=== PATIENT | male | born 1975 | race Caucasian/White ===

== ENCOUNTER 2024-10-17 09:44 | Inpatient (IN) ==
--- NOTE | 2024-10-17 10:04 | Emergency Department Note ---
Impression & Plan Infected hematoma Admission ED Provider Note HPI: History obtained from patient. The patient is a 49-year-old gentleman with history of smoking, presents the emergency department with a chief complaint of an infected hematoma to the right medial thigh. Patient states his original injury occurred when he fell off a tractor about 2-1/2 weeks ago. Patient was here in the hospital 2 days ago and scheduled for surgery for debridement of infected hematoma to the right medial thigh, he states he signed out AGAINST MEDICAL ADVICE prior to his surgery being performed because he was having issues with anxiety. On arrival here to the ED the patient complains of some pain in this area, he states "it just will not heal up". Patient states he did finish a course of oral antibiotics several days ago. On arrival here to the ED the patient is mildly hypertensive but otherwise hemodynamically stable, he is afebrile, he appears to be in no acute distress on my initial evaluation. ROS: - Per HPI Differential Diagnosis: Cellulitis, infected hematoma, necrotizing soft tissue infection, amongst other potential pathologies. *Outpatient medications and allergy history reviewed. PE: General: Alert HEENT: Normocephalic, trachea midline Eyes: Extraocular eye movement is intact, no scleral erythema Pulmonary: Clear to auscultation bilaterally, no wheezing Cardio: Regular rate and rhythm GI: Abdomen is soft to palpation : No suprapubic tenderness MSK: There is a large apparent hematoma with central purulent ulcer to the medial aspect of the right lower extremity without any surrounding crepitus to palpation Skin: No evidence of rash Neuro: Alert, no focal deficits Psychiatric: Cooperative INDEPENDENT INTERPRETATIONS: night monitor: (As interpreted by myself): - An order was placed for continuous cardiac monitoring - Patient was noted to be in sinus rhythm with a rate of 85 EKG: (As interpreted by myself): Rate: 87 Rhythm: Normal sinus rhythm Intervals: Within normal limits ST changes: No ST elevation Time: 1015 Interventions provided in ED: - IV morphine, IV Zofran, IV cefepime Medical Decision Making: IV was established and lab work obtained, patient was placed on cardiac tech. Lab work shows no leukocytosis, hemoglobin is normal, platelet count is normal, CMP does not show any evidence of any critical findings. Lactic acid is mildly elevated at 2.1. Procalcitonin is low at 0.03. Patient did have CT imaging done just 2 days ago, therefore I did reach out to general surgery and discussed his presentation with the on-call midlevel provider for Dr. Laguna. They are in agreement for consultation and likely operative intervention later today, patient was advised for admission to the hospitalist service. I then did touch base with the hospitalist service who accepted admission. Patient was placed for admission to the service of Dr. Mckinley. Blood cultures were drawn in the ED, patient was given a dose of IV cefepime. Patient was placed for admission in stable condition. Patient and his family members at the bedside were in agreement to this plan. Consultants/Discussions held with other healthcare providers: - Hospitalist, Dr. Mckinley - General Surgery, Dr. Laguna Disposition discussion held by myself with: - Patient and family at bedside Diagnosis: 1. Infected hematoma of the right lower extremity, acute Disposition: Admission Teo Perla DO Emergency Medicine Past Med/Surg History Problem List (Updated 10/17/24 @ 15:28 by Teo Perla DO) Infected hematoma (Acute) Cellulitis of right thigh Nicotine dependence with current use Alcohol abuse COPD (chronic obstructive pulmonary disease) Avulsion of skin (Acute) Hematoma of right thigh (Acute) Infected hematoma (Acute) Cervical stenosis of spinal canal (Acute 07/01/13) Medical History High blood pressure Surgical History H/O Spinal surgery Social History Smoking Status: Current every day smoker Tobacco Type: Cigarettes Preferred Language: Mohawk Feels Safe at Home: Yes Allergies Allergies Allergy/AdvReac Type Severity Reaction Status Date / Time Penicillins Allergy Intermediate RASH Verified 10/17/24 10:55 Home Meds Home Medications Medication Instructions Recorded Confirmed acetaminophen 500 mg tablet 500 mg PO Q6H PRN Pain 10/15/24 10/17/24 ibuprofen 200 mg tablet 200 mg PO Q6H PRN Pain 10/15/24 10/17/24 albuterol 90 mcg/actuation aerosol 108 mcg inhalation PRN wheeze 10/17/24 inhaler hydrochlorothiazide 25 mg tablet 25 mg PO DAILY 10/17/24 10/17/24 lisinopril 20 mg tablet 20 mg PO DAILY 10/17/24 10/17/24 Results & Data (ED) Vital Signs Vital Signs - 24 hr 10/17/24 09:46 10/17/24 10:23 10/17/24 10:27 Temperature 36.9 C Temperature Source Oral Pulse Rate 97 H 90 85 Pulse Rate from SpO2 Sensor Respiratory Rate 20 17 Respiratory Effort / Characteristics Non-Labored Spontaneous Respiratory Depth Normal Respiratory Pattern Regular Blood Pressure 149/107 H 170/94 H Blood Pressure Mean 121 119 Pulse Oximetry 99 97 Oxygen Delivery Method Room Air Room Air Sepsis Recent Fever Within 48 Hours No Sepsis New/Unexplained Change in Mental Status N/A Sepsis Action Taken by Nursing No Action Required 10/17/24 11:12 10/17/24 11:33 10/17/24 12:33 Temperature Temperature Source Pulse Rate 83 83 88 Pulse Rate from SpO2 Sensor 83 84 81 Respiratory Rate 16 19 23 Respiratory Effort / Characteristics Respiratory Depth Respiratory Pattern Blood Pressure 160/98 H 173/104 H Blood Pressure Mean 118 127 Pulse Oximetry 99 98 98 Oxygen Delivery Method Room Air Sepsis Recent Fever Within 48 Hours Sepsis New/Unexplained Change in Mental Status Sepsis Action Taken by Nursing 10/17/24 13:39 10/17/24 14:03 10/17/24 14:10 Temperature Temperature Source Pulse Rate 86 81 79 Pulse Rate from SpO2 Sensor 83 84 Respiratory Rate 16 16 Respiratory Effort / Characteristics Respiratory Depth Respiratory Pattern Blood Pressure 175/104 H 177/101 H Blood Pressure Mean 127 126 Pulse Oximetry 96 96 Oxygen Delivery Method Sepsis Recent Fever Within 48 Hours Sepsis New/Unexplained Change in Mental Status Sepsis Action Taken by Nursing 10/17/24 14:36 10/17/24 15:03 Temperature Temperature Source Pulse Rate 76 84 Pulse Rate from SpO2 Sensor 77 79 Respiratory Rate 17 25 H Respiratory Effort / Characteristics Respiratory Depth Respiratory Pattern Blood Pressure Blood Pressure Mean Pulse Oximetry 98 98 Oxygen Delivery Method Sepsis Recent Fever Within 48 Hours Sepsis New/Unexplained Change in Mental Status Sepsis Action Taken by Nursing Laboratory Data 10/17/24 10:06 10/17/24 10:06 Lab Results 10/17/24 10/17/24 Range/Units 10:06 12:23 WBC 10.13 (4.8-10.8) K/ul RBC 4.43 L (4.70-6.10) M/uL Hgb 15.0 (14.0-18.0) g/dl Hct 42.3 (42.0-52.0) % MCV 95.5 (80.0-100.0) fL MCH 33.9 (25.0-34.0) pg MCHC 35.5 (32.0-36.0) g/dL RDW Std Deviation 49.2 H (36.4-46.3) fL RDW Coeff of Pako 13.9 (11.5-14.5) % Plt Count 393 (130-400) K/uL MPV 8.7 L (9.4-12.4) fL Immature Gran % (Auto) 0.6 % Neut % (Auto) 61.8 % Lymph % (Auto) 26.1 % Dewitt % (Auto) 9.7 % Eos % (Auto) 0.7 % Baso % (Auto) 1.1 % Neut # (Auto) 6.27 (1.40-6.50) K/uL Lymph # (Auto) 2.64 (1.20-3.40) K/uL Dewitt # (Auto) 0.98 H (0.11-0.59) K/uL Eos # (Auto) 0.07 (0.00-0.50) K/uL Baso # (Auto) 0.11 (0.00-0.20) K/uL Immature Gran # (Auto) 0.06 (0.01-0.20) K/uL Sodium 138 (136-145) mmol/L Potassium 3.3 L (3.5-5.1) mmol/L Chloride 103 (98-107) mmol/L Carbon Dioxide 25 (21-32) mmol/L Anion Gap 10 (3-11) BUN 5 L (6-23) mg/dl Creatinine 0.87 (0.6-1.4) mg/dl Est Cr Clr Drug Dosing Not Reportable eGFR 104.47 BUN/Creatinine Ratio 5.7 L (10-20) Glucose 145 H (70-99(Fasting)) mg/dl Lactate 2.1 H* 1.8 (0.4-2.0) mmol/L Calcium 8.7 (8.6-10.3) mg/dl Magnesium 1.9 (1.7-2.4) mg/dl Total Bilirubin 0.4 (0.2-1.0) mg/dl Direct Bilirubin 0.0 (0-0.2) mg/dl AST 24 (13-39) U/L ALT 19 (7-52) U/L Alkaline Phosphatase 115 H (34-104) U/L Total Protein 7.4 (6.0-8.3) gm/dl Albumin 3.7 (3.4-5.0) gm/dl Procalcitonin 0.03 (0-0.5) ng/ml Administered Medications Daptomycin 700 mg/ Syringe 14 mls @ 7 mls/min IV Q24H EMIL; Protocol Stop: 10/24/24 12:44 Last Admin: 10/17/24 13:11 Dose: 7 mls/min Documented By: ABEL Nicotine (Nicotine 21 Mg/24 Hr Tdsy) 1 patch TD QAM EMIL Stop: 11/16/24 11:44 Last Admin: 10/17/24 11:53 Dose: 1 patch Documented By: ABEL Discontinued Medications Gabapentin (Gabapentin 600 Mg Tab) 1,200 mg PO NOW ONE Stop: 10/17/24 11:37 Last Admin: 10/17/24 11:53 Dose: 1,200 mg Documented By: ABEL Hydralazine HCl (Hydralazine Hcl 20 Mg/Ml Vial) 5 mg IV NOW ONE Stop: 10/17/24 13:46 Last Admin: 10/17/24 14:07 Dose: 5 mg Documented By: ABEL Sodium Chloride (Nss) 500 mls @ 999 mls/hr IV .Q31M ONE Stop: 10/17/24 10:32 Last Infusion: 10/17/24 11:31 Dose: Infused Documented By: Admin: 10/17/24 10:17 Dose: 999 mls/hr Documented By: ABEL Piperacillin Sod/Tazobactam Sod (Zosyn) 4.5 gm in 100 mls @ 200 mls/hr IV NOW ONE; Protocol Stop: 10/17/24 11:12 Last Admin: 10/17/24 11:30 Dose: Not Given Documented By: ABEL Cefepime HCl (Maxipime 2000mg) 2,000 mg in 20 mls @ 5 mls/min IV NOW STA; Protocol Stop: 10/17/24 10:47 Last Admin: 10/17/24 11:27 Dose: 5 mls/min Documented By: ABEL Lisinopril (Lisinopril 20 Mg Tab) 20 mg PO NOW STA Stop: 10/17/24 13:53 Last Admin: 10/17/24 14:07 Dose: 20 mg Documented By: ABEL Morphine Sulfate (Morphine Sulfate 4 Mg/Ml 1 Ml Carp\\Vial) 4 mg IV NOW STA Stop: 10/17/24 10:22 Last Admin: 10/17/24 10:25 Dose: 4 mg Documented By: ABEL Ondansetron HCl (Ondansetron Inj 2 Mg/Ml 2 Ml Vial) 4 mg IV NOW STA Stop: 10/17/24 10:22 Last Admin: 10/17/24 10:24 Dose: 4 mg Documented By: ABEL Potassium Chloride (Potassium Chloride Crtab 20 Meq Tabcr) 40 meq PO NOW STA Stop: 10/17/24 12:13 Last Admin: 10/17/24 12:25 Dose: 40 meq Documented By: ABEL Thiamine HCl (Thiamine Hcl 100 Mg Tab) 100 mg PO ONE ONE Stop: 10/17/24 11:46 Last Admin: 10/17/24 12:25 Dose: 100 mg Documented By: ABEL Imaging Data Radiologist's Impression: Femur CT 10/17/24 11:52 CT femur RT wo con CLINICAL HISTORY: Right lower extremity hematoma. COMPARISON STUDY: Right femur CT right lower extremity ultrasound October 15, 2024. TECHNIQUE: Axial images of the right femur and thigh were obtained without intravenous contrast. Sagittal and coronal reformats were viewed. A dose lowering technique was utilized adhering to the principles of ALARA. FINDINGS: No fractures within the right femur or visualized portions of the pelvis are identified. Mildly enlarged right external iliac and inguinal lymph nodes are unchanged and CT of October 15, 2024. A right external iliac lymph node on image 35 of 467 measures 2.9 x 1.2 cm. These nodes are likely reactive. A large subcutaneous medial right thigh fluid collection is unchanged since CT of October 15, 2024, measuring 22 x 14 x 8.3 cm. As before, this contains several hyperdense foci suggestive of small clots. No new fluid collections are present. There is adjacent stranding and skin thickening, as before. IMPRESSION: 1. No change in a large subcutaneous fluid collection of the medial right thigh since CT of October 15, 2024. As before, the skin and small hyperdense foci suggestive of retracting clot. This favors a subacute hematoma. Mild adjacent stranding is also unchanged. 2. No right femoral fractures. 3. No change in mildly enlarged right right external iliac and inguinal lymph nodes which are likely reactive. ACT 112: Negative or not required by law. Electronically signed by: Derek Cameron M.D. 10/17/2024 12:43 PM Discharge Plan Visit Data Chief Complaint: Infection Stated Complaint: L LEG INF ED Provider: Teo Perla Discharge Problem: Infected hematoma Patient Disposition: Admitted As Inpatient Condition: Fair Forms Stand Alone Forms: [facility] Prescriptions Prescriptions: No Action acetaminophen [Tylenol Ex Str Rapid Release] 500 mg Tablet 500 mg PO Q6H PRN (Reason: Pain) ibuprofen 200 mg Tablet 200 mg PO Q6H PRN (Reason: Pain) lisinopril 20 mg Tablet 20 mg PO DAILY hydrochlorothiazide 25 mg Tablet 25 mg PO DAILY Proventil 90 mcg/actuation Aerosol 108 mcg INHALATION PRN (Reason: wheeze) Referrals Referrals: Barbara Lei MD [Primary Care Provider] -
[2024-10-17] MEDS: SODIUM CHLORIDE 0.9% 500 ML IV ONE (10:17)
[2024-10-17] MEDS: ONDANSETRON INJ 2 MG/ML 2 ML VIAL IV STA (10:24)
[2024-10-17] MEDS: MoRPHine SULFATE 4 MG/ML 1 ML CARP\\VIAL IV STA (10:25)
[2024-10-17 10:28] LABS: Hematocrit (blood only) 42.3 % (42.0-52.0); Hemoglobin 15.0 g/dl (14.0-18.0); Immature Granulocytes # (auto) 0.06 K/uL (0.01-0.20); Immature Granulocytes % (auto) 0.6 %; Mean Corpuscular Hemoglobin 33.9 pg (25.0-34.0); Mean Corpuscular Volume 95.5 fL (80.0-100.0); Platelet Count 393 K/uL (130-400); RDW Standard Deviation 49.2 fL (36.4-46.3); Red Blood Count 4.43 M/uL (4.70-6.10); White Blood Count 10.13 K/ul (4.8-10.8)
[2024-10-17 10:46] LABS: Alanine Aminotransferase 19 U/L (7-52); Albumin Level 3.7 gm/dl (3.4-5.0); Alkaline Phosphatase 115 U/L (34-104); Anion Gap 10 (3-11); Bilirubin,Total 0.4 mg/dl (0.2-1.0); Blood Urea Nitrogen 5 mg/dl (6-23); Calcium 8.7 mg/dl (8.6-10.3); Carbon Dioxide 25 mmol/L (21-32); Chloride 103 mmol/L (98-107); Glucose 145 mg/dl (70-99(Fasting)); Magnesium 1.9 mg/dl (1.7-2.4); Potassium 3.3 mmol/L (3.5-5.1); Sodium 138 mmol/L (136-145); Total Protein 7.4 gm/dl (6.0-8.3)
--- NOTE | 2024-10-17 10:57 | History & Physical Report ---
Date of Service October 17, 2024 Assessment & Plan (1) Infected hematoma: Plan: Patient is a 49 year old M with a past medical history of COPD, current tobacco user, HTN (uncontrolled) ,morbid obesity, hypertriglyceridemia, chronic DDD, panic disorder, anxiety presenting with right leg hematoma and infection. Two weeks ago, on 09/24, he fell off a tractor and run over with the brush hook injuring his right thigh, right scrotum, and upper back. He was seen in the ED on 09/26, sent home with Bactrim and reportedly competed the entire course of antibiotic. He returned here 2 days ago for unresolved symptoms and persistent infection, was agreeable to surgery that same day and then left AMA d/t overwhelming anxiety and possible nicotine withdrawal. He feels infection has not completely cleared, has not worsened. Left scrotal injury improving per patient report and not bothersome at this time. Infected hematoma #Hematoma right thigh #Cellulitis Right thigh * Admit to Med Surg for further management RLE infection of thigh hematoma * CT femur 10/15 showing large well defined homogeneously hypoattenuating lesion/collection of medial aspect of mid and distal right thigh; Few hypodense area possibility of hemorrhagic component likely. * Follow up CT femur today showing no change in subQ fluid collection medial right thigh and subacute hematoma. * General surgery consulted in the ED with the plan for debridement today. Patient is agreeable to surgery. NPO for anticipated surgery; NSS 80 ml/hr * Cefepime given in the ED; NSS 500 ml bolus, Morphine for pain x 1 with relief. * Start Zosyn for broader spectrum coverage * Daptomycin for MRSA coverage * ID consult placed--> patient failed OP treatment with Bactrim * Discussed wound culture with General surgery * Labs: Stable WBC, Lactate 2.1. Procal norm. Blood cultures pending--> Trend CBC/BMP with AM labs * Pain management- Acetaminophen 1gm sche Q12H; Oxy 5mg for mod pain; Morphine 4mg for severe pain * Bowel regimen with Miralax daily * Case Management to assist with d/c planning with BP meds and possible wound care HH #Hypertension * BP elevated in ED 160's/90's; nonadherent with BP meds at home d/t no insurance * Resume home Lisinopril 20 mg Daily * Hydralazine 5mg as needed for SBP >160 #COPD #Nicotine dependence * Stable breathing in ED, pulse ox 98% RA * Current tobacco use 2 PPD- Nicotine patch ordered * Ativan 0.5 mg PO as needed for anxiety--> h/o AMA * Nonadherent to COPD mgmt at home with Proventil * Duonebs as needed Q6H here for wheezing/shortness of breath * IS Q4H while awake #Alcohol Abuse * Heavy alcohol use 1 case beer/day * AAWS initiated- Gabapentin protocol * Thiamine x 1 given in ED DVT Ppx: Lovenox/SCD to LLE Code status: Full PCP: Dr. Barbara Lei Dispo: Admit to Med Surg Patient seen in collaboration with Dr. Downing. Please see addendum.I spent a total of 70 minutes coordinating, documenting and providing care for this patient excluding time spent in the performance of separately billed services or time spent by another provider/QHP. (2) Cellulitis of right thigh: (3) Hematoma of right thigh: (4) High blood pressure: (5) COPD (chronic obstructive pulmonary disease): (6) Nicotine dependence with current use: (7) Alcohol abuse: History of Present Illness Primary Care Provider: Barbara Lei MD Patient is a 49 year old M with a past medical history of COPD, current tobacco user, HTN (uncontrolled) ,morbid obesity, hypertriglyceridemia, chronic DDD, panic disorder, anxiety presenting with right leg hematoma and infection. Two weeks ago, on 09/24, he fell off a tractor and run over with the brush hook injuring his right thigh, right scrotum, and upper back. He was seen in the ED on 09/26, sent home with Bactrim and reportedly competed the entire course of antibiotic. He returned here 2 days ago for unresolved symptoms and persistent infection, was agreeable to surgery that same day and then left AMA d/t overwhelming anxiety and possible nicotine withdrawal. He feels infection has not completely cleared, has not worsened. Left scrotal injury improving per patient report and not bothersome at this time. Denies fever, chills, weight loss, weakness, headache, cognitive changes, vision/hearing changes, chest pain, SOB, difficulty breathing, urinary concerns, N/V/D, joint swelling/pain, ambulation difficulty, skin rashes, bleeding, bruising. In the emergency department, patient was afebrile with stable white count, but had an elevated Lactate 2.1. Procal norm. Hypokalemia with K+ 3.3 and supplemented with 40 meq KCL x 1. Alk phos elevated 115. CT femur imaging from 10/15 showing large well defined homogeneously hypoattenuating lesion/collection (HU around 6-7) involving medial aspect of mid and distal right thigh region in the subcutaneous plane. Few hypodense area possibility of hemorrhagic component likely. Follow up CT femur done today showing large subcutaneous fluid collection of the medial right thigh since CT of October 15, 2024. As before, the skin and small hyperdense foci suggestive of retracting clot. This favors a subacute hematoma. Mild adjacent stranding is also unchanged. General surgery consulted in the ED with the plan for debridement today. Patient is agreeable to surgery. Cefepime and Zosyn given in the ED. NSS 500 ml in ED. Morphine for pain x 1 with relief. Patient is nonadherent to home medications for hypertension, COPD, and hypertriglyceridemia d/t lack of insurance. He has been off all controller medications for at least 2 months. Hypertensive in ED 160's /90's. No acute resp distress and stable on room air. Current tobacco user 2 PPD. History obtained primarily from the patient and via hospitalization record. The patient's family was at the bedside and assisted with history of current illness. External chart review obtained from [facility] for home meds. Allergies Allergy/AdvReac Type Severity Reaction Status Date / Time Penicillins Allergy Intermediate RASH Verified 10/17/24 10:55 Home Medications Medication Instructions Recorded Confirmed Type acetaminophen 500 mg tablet 500 mg PO Q6H PRN Pain 10/15/24 10/17/24 History ibuprofen 200 mg tablet 200 mg PO Q6H PRN Pain 10/15/24 10/17/24 History albuterol 90 mcg/actuation aerosol 108 mcg inhalation PRN wheeze 10/17/24 History inhaler hydrochlorothiazide 25 mg tablet 25 mg PO DAILY 10/17/24 10/17/24 History lisinopril 20 mg tablet 20 mg PO DAILY 10/17/24 10/17/24 History Past Med/Surg History Problem List Cellulitis of right thigh Nicotine dependence with current use Alcohol abuse COPD (chronic obstructive pulmonary disease) Avulsion of skin (Acute) Hematoma of right thigh (Acute) Infected hematoma (Acute) Cervical stenosis of spinal canal (Acute 07/01/13) Medical History High blood pressure Surgical History H/O Spinal surgery Social History Smoking Status: Current every day smoker Tobacco Type: Cigarettes Preferred Language: [place] Feels Safe at Home: Yes Review of Systems Review of Systems: All systems reviewed & are unremarkable except as noted in HPI & below Physical Exam Physical Exam: VITALS: Reviewed. WEIGHT/BMI reviewed. GEN: Obese, well-developed, NAD. PSYCH: Good Judgment. AOx3. Normal memory, mood, and affect. HEENT -Head: NC/AT; -Eyes: PERRL, EOMI. No discharge or redn ess; -Ears: External ears are normal. -Nose: Normal nares. -Mouth and throat: MMM. Normal gums, muc renetta, palate, few missing teeth NECK: Supple, with no masses. CV: S1, S2 without murmur or exra beats. No LLE swelling. Pulses strong throughout. LUNGS: Mild diminished airflow bilaterally to BL bases, NAD. Clear on auscultation ABD: Soft, obese, NT/ND, NBS, no masses or organomegaly. : N/A SKIN: Right inner thigh severe swelling, warm, erythema, +eschar covering large wound ~10 inch diam, central ulceration without active drainage. MSK: No deformities, Normal gait. NEURO: Ambulating with no limitations. Normal muscle strength and tone. No focal deficits. Results & Data Results & Data Vital Signs (Past 12 Hours) Vital Signs Temp Pulse Resp BP Pulse Ox O2 Del Method 10/17/24 10:23 90 10/17/24 09:46 36.9 C 97 H 20 149/107 H 99 Room Air Laboratory Results Short CBC 10/17/24 Range/Units 10:06 WBC 10.13 (4.8-10.8) K/ul Hgb 15.0 (14.0-18.0) g/dl Hct 42.3 (42.0-52.0) % Plt Count 393 (130-400) K/uL BMP 10/17/24 10:06 Sodium 138 Potassium 3.3 L Chloride 103 Carbon Dioxide 25 BUN 5 L Creatinine 0.87 Glucose 145 H Calcium 8.7 Liver Function 10/17/24 Range/Units 10:06 Total Bilirubin 0.4 (0.2-1.0) mg/dl Direct Bilirubin 0.0 (0-0.2) mg/dl AST 24 (13-39) U/L ALT 19 (7-52) U/L Alkaline Phosphatase 115 H (34-104) U/L Albumin 3.7 (3.4-5.0) gm/dl Diagnostic Findings CT femur RT w con CLINICAL HISTORY: infection TECHNIQUE: Contiguous axial CT images of right femur were obtained with intravenous contrast. Coronal and sagittal reconstructions were likewise performed and indicated to increase the sensitivity for detecting clinically relevant pathology. CT scan was performed according to ALARA (as low as reasonable achievable). COMPARISON: None. FINDINGS: Approximately 12.3 x 12.5 x 23 cm ( AP x TR x CC) sized well defined homogeneously hypoattenuating lesion/collection (HU around 6-7) is noted involving medial aspect of mid and distal right thigh region in the subcutaneous plane. It shows intrinsic few hypodense area possibility of hemorrhagic component likely . No significant peripheral enhancement is seen. Diffuse subcutaneous edema seen in right thigh. No acute fracture or dislocation. No destructive osseous lesion. The visualized muscles and tendons appear grossly unremarkable. No cortical destruction to suggest osteomyelitis. No abscess formation. No significant joint effusion. IMPRESSION: 1. A large well defined homogeneously hypoattenuating lesion/collection (HU around 6-7) is noted involving medial aspect of mid and distal right thigh region in the subcutaneous plane. It shows intrinsic few hypodense area possibility of hemorrhagic component likely. No significant peripheral enhancement is seen.- could be chronic hematoma /chronic collection likely 2. No obvious osseous abnormalities seen. Electronically signed by Eitan Jorgensen 10-15-2024 07:22 AM Dictated: 10/15/24 0638 Transcribed:
--- NOTE | 2024-10-17 11:24 | Surgery Consultation ---
Date of Consultation October 17, 2024 Assessment & Plan (1) Infected hematoma: Patient seen and evaluated this morning in the emergency department. Patient with infected right thigh hematoma with overlying skin necrosis Patient being admitted to medical service. Keep patient n.p.o., IV hydration, and initiate IV antibiotic coverage Will tentatively plan to take patient to the operating theater today for incision and drainage and debridement of the hematoma as above. discussed options/risks. pt agreeable. will proceed today with incision and drainage of RLE abcess and debridement of necrotic tissue History of Present Illness Reason for Consultation: infected right thigh hematoma History of Present Illness Patient is a 49-year-old male presented to the emergency department for complaints of worsening right thigh wound/hematoma. Roughly 3 weeks ago, the patient states that he was in a tractor accident which caused the injury. He states the area has not been able to heal and has progressively gotten worse over the course of a few weeks. To note, the patient was seen 2 days ago in the emergency department and was scheduled to undergo operative intervention with surgical team for incision drainage and debridement however he did leave AMA. Since then, the patient denies any new onset of fevers, chills, nausea or vomiting. The patient did come back to the emergency department this morning again and was evaluated by the surgical team at bedside. Allergies Allergy/AdvReac Type Severity Reaction Status Date / Time Penicillins Allergy Intermediate RASH Verified 10/17/24 10:55 Home Medications Medication Instructions Recorded Confirmed Type acetaminophen 500 mg tablet 500 mg PO Q6H PRN Pain 10/15/24 10/17/24 History ibuprofen 200 mg tablet 200 mg PO Q6H PRN Pain 10/15/24 10/17/24 History albuterol 90 mcg/actuation aerosol 108 mcg inhalation PRN wheeze 10/17/24 History inhaler hydrochlorothiazide 25 mg tablet 25 mg PO DAILY 10/17/24 10/17/24 History lisinopril 20 mg tablet 20 mg PO DAILY 10/17/24 10/17/24 History Patient History Medical History High blood pressure Surgical History H/O Spinal surgery Social History Smoking Status: Current every day smoker Tobacco Type: Cigarettes Preferred Language: Spanish Feels Safe at Home: Yes Review of Systems Constitutional: no fever, no chills and no body aches Respiratory: no cough, no dyspnea and no wheezing Cardiovascular: no chest pain, no palpitations and no syncope Gastrointestinal: no abdominal pain, no nausea and no vomiting Musculoskeletal: as per Subjective / HPI Physical Exam 2 Constitutional: WD/WN, vitals as above Respiratory: normal respiratory effort, lungs clear to auscultation Cardiovascular: Rate/Rhythm: regular rate Gastrointestinal (Abdomen): normal bowel sounds, soft, nontender, no hepatosplenomegaly Skin: Large area of skin necrosis at the right medial thigh with surrounding erythema and fluctuance Psychiatric: A+Ox3, euthymic affect Results & Data Vital Signs (Past 12 Hours) Vital Signs Temp Pulse Resp BP Pulse Ox O2 Del Method 10/17/24 10:23 90 10/17/24 09:46 36.9 C 97 H 20 149/107 H 99 Room Air PG Care Time/CCT Total # of Minutes Spent Total Time Spent with Patient: Total time spent is greater than 50% in coordination of care (as documented) at patient's floor/unit and/or counseling patient: [place] [address] Office/OBS Consult Lvl 1 Patient Type New Medical Decision Making Straight Forward Diagnoses Infected hematoma T14.8XXA; L08.9
[2024-10-17] MEDS: CEFEPIME 2000MG 2,000 MG/20 ML SYR IV STA (11:27)
[2024-10-17] MEDS: PIPERACILLIN/TAZOBACTAM 4.5 GM/100 ML BAG IV ONE (11:30)
[2024-10-17] MEDS ORDERED: GABAPENTIN 1200MG ALCOHOL WITHDRAWAL LOAD PO STA (11:36)
[2024-10-17] MEDS ORDERED: LORazepam 1 MG TAB PO PRN ×2 (11:36)
[2024-10-17] MEDS: NICOTINE 21 MG/24 HR TDSY TD SCH (11:53)
[2024-10-17] MEDS: GABAPENTIN 600 MG TAB PO ONE (11:53)
[2024-10-17] MEDS ORDERED: NICOTINE 21 MG/24 HR TDSY TD ONE ×2 (12:00→12:30)
--- NOTE | 2024-10-17 12:17 | Communication Note ---
Date of Service: October 17, 2024 Attending Addendum: Case reviewed with the advanced practitioner. I have personally performed a history and physical examination on the patient. I have reviewed the advanced practitioner's documentation on the date of service referenced in note, and I agree with, and take responsibility for the plan of care. please refer to her notes for full details patient seen and examined, records reviewed by myself as well on exam, patient seen resting in bed, sitting up friends at bedside, confirmed with patient, he is agreeable that they are at the bedside during interview and physical exam states morphine relieved pain on the right thigh denies fever/chills, nausea, weakness no chest pain, dyspnea, palpitations, dizziness states he feels anxious in the hospital, requesting medications for anxiety as needed states he drinks 10-12 beers, about 3x per week no other symptoms VS noted and reviewed oriented x 3 , not in distress, speaks in sentences with no effort nor accessory muscle use normal rate, regular rhythm, no murmurs clear breath sounds bilaterally non distended, soft, nontender R thigh: on the medial aspect, large wound with skin necrosis, dry, no active bleeding or discharge (+) significant edema, erythema moderate warmth, tenderness R lower ext: essentially normal R scrotum: small,open, superficial wound, no signs of infection, no edema/warmth/tenderness no neuro deficits all labs, imaging noted and reviewed ASSESSMENT AND PLAN> INFECTED RIGHT THIGH WOUND, WITH CELLULITIS S/P TRAUMA occurred ~3 weeks ago, fell from tractor and leg injured by a brush hook; failed Bactrim therapy, seen at the ER 2 days ago, plan for I&D by General Surgery, unfortunately patient signed out AMA due to anxiety blood culture 10/15: negative so far repeat blood culture 10/17: pending requesting Gen Surg to obtain culture from wound drainage intraop IV Dapto + Zosyn Tylenol, Oxycodone, Morphine PRN received Tetanus shot as per patient during initial visit to an urgent care on the day of injury September 26 ALCOHOL USE 10-12 beers, 3x a week Gabapentin protocol, PRN Ativan patient states he drinks to cope with anxiety since being off his Psych meds after loosing health insurance coverage strongly encouraged to follow up closely again with PCP, referred to TO [facility] Nicotine Patch HTN has been off Lisinopril/HCTZ since loosing insurance coverage continue Lisinopril for now COPD on PRN Proventil other diagnoses and plan of care as per advanced practitioner's notes I spent a total of 50 minutes coordinating, documenting, and providing care for this patient, excluding time spent in the performance of separately billed services or time spent by another provider/QHP. Akhil Mckinley MD
[2024-10-17] MEDS: POTASSIUM CHLORIDE CRTAB 20 MEQ TABCR PO STA (12:25)
[2024-10-17] MEDS: THIAMINE HCL 100 MG TAB PO ONE (12:25)
--- NOTE | 2024-10-17 12:44 | CT Scan Report ---
CT femur RT wo con CLINICAL HISTORY: Right lower extremity hematoma. COMPARISON STUDY: Right femur CT right lower extremity ultrasound October 15, 2024. TECHNIQUE: Axial images of the right femur and thigh were obtained without intravenous contrast. Sagi ttal and coronal reformats were viewed. A dose lowering technique was utilized adhering to the princi ples of ALARA. FINDINGS: No fractures within the right femur or visualized portions of the pelvis are identified. Mi ldly enlarged right external iliac and inguinal lymph nodes are unchanged and CT of October 15, 2024. A right external iliac lymph node on image 35 of 467 measures 2.9 x 1.2 cm. These nodes are likely reac tive. A large subcutaneous medial right thigh fluid collection is unchanged since CT of October 15, 2024 , measuring 22 x 14 x 8.3 cm. As before, this contains several hyperdense foci suggestive of small cl ots. No new fluid collections are present. There is adjacent stranding and skin thickening, as before . IMPRESSION: 1. No change in a large subcutaneous fluid collection of the medial right thigh since CT of October 15, 2024. As before, the skin and small hyperdense foci suggestive of retracting clot. This favors a suba cute hematoma. Mild adjacent stranding is also unchanged. 2. No right femoral fractures. 3. No change in mildly enlarged right right external iliac and inguinal lymph nodes which are likely reactive. ACT 112: Negative or not required by law. Electronically signed by: Derek Cameron M.D. 10/17/2024 12:43 PM
[2024-10-17] MEDS: DAPTOmycin 700 MG in SYRINGE 0 ML IV SCH (13:11)
[2024-10-17] MEDS ORDERED: MIDAZOLAM HCL 1 MG/ML 2ML VIAL ONE (15:43)
[2024-10-17] MEDS ORDERED: LIDOCAINE 2% 2 ML VIAL/AMP(20MG/ML) INFIL ONE (15:43)
[2024-10-17] MEDS ORDERED: ONDANSETRON INJ 2 MG/ML 2 ML VIAL ONE (15:43)
[2024-10-17] MEDS ORDERED: PROPOFOL IV EMULSION 10 MG/ML 20 ML VIAL IV ONE ×3 (15:43→16:51)
[2024-10-17] MEDS: LACTATED RINGER'S 1,000 ML IV SCH (16:19)
--- NOTE | 2024-10-17 16:26 | Anesthesiology Consultation ---
Date of Service October 17, 2024 Assessment & Plan Chart Review Chart Review: Acceptable Risk for Surgery Consults Requested none History Surgery Operation Date: 10/17/24 11:35 Proposed Procedures p Incision and Drainage Right Thigh Hematoma - Brandon Laguna DO Height/Weight Height: 6 ft 3 in Weight: 145.3 kg Allergies Allergy/AdvReac Type Severity Reaction Status Date / Time Penicillins Allergy Intermediate RASH Verified 10/17/24 10:55 Medications Home Medications Medication Instructions Recorded Confirmed Last Taken acetaminophen 500 mg tablet 500 mg PO Q6H PRN Pain 10/15/24 10/17/24 Unknown ibuprofen 200 mg tablet 200 mg PO Q6H PRN Pain 10/15/24 10/17/24 Unknown albuterol 90 mcg/actuation aerosol 108 mcg inhalation PRN wheeze 10/17/24 Unknown inhaler hydrochlorothiazide 25 mg tablet 25 mg PO DAILY 10/17/24 10/17/24 Unknown lisinopril 20 mg tablet 20 mg PO DAILY 10/17/24 10/17/24 Unknown Active Medications Generic Name Dose Route Start Last Admin Trade Name Freq PRN Reason Stop Dose Admin Daptomycin 700 mg/ Syringe 14 mls @ 7 mls/min 10/17/24 12:45 10/17/24 13:11 IV 10/24/24 12:44 7 mls/min Q24H EMIL Administration Protocol Lactated Ringer's 1,000 mls @ 15 mls/hr 10/17/24 16:15 10/17/24 16:19 Lr IV 10/20/24 16:14 15 mls/hr .Q24H EMIL Administration NPO Date Last Intake of Fluids: 10/17/24 Time Last Intake of Fluids: 15:00 Last Intake of Fluids Comment: SIP WITH MEDS Date Last Intake of Solids: 10/16/24 Time Last Intake of Solids: 13:00 Past Medical History Medical History High blood pressure Past Surgical History Surgical History H/O Spinal surgery Social History Smoking Status: Current every day smoker Physical Exam Vital Signs Last Vital Signs Temp 36.8 C 10/17/24 16:06 Pulse 94 H 10/17/24 16:06 Resp 20 10/17/24 16:06 BP 141/89 H 10/17/24 16:06 Pulse Ox 98 10/17/24 16:06 O2 Del Method Room Air 10/17/24 16:06 Testing Laboratory Results 10/17/24 10:06 10/17/24 10:06
[2024-10-17] MEDS ORDERED: ONDANSETRON INJ 2 MG/ML 2 ML VIAL IV PRN (16:27)
[2024-10-17] MEDS ORDERED: PROMETHAZINE HCL 6.25 MG in SODIUM CHLORIDE 0.9% 50 ML IV PRN (16:27)
[2024-10-17] MEDS ORDERED: HYDROmorphone INJ 2 MG/ML SYR/VIAL IV PRN (16:27)
[2024-10-17] MEDS ORDERED: ATROPINE SULFATE 0.1 MG/ML 10ML SYR IV PRN (16:27)
[2024-10-17] MEDS ORDERED: DexMEDEtomidine HCL IV 100 MCG/ML VIAL IV ONE (16:45)
[2024-10-17] MEDS ORDERED: PHENYLEPHRINE 100MCG/ML 5ML SYR ONE (16:51)
--- NOTE | 2024-10-17 17:28 | Operative Report ---
PG Post Operative Report Pre & Post Diagnosis Operation Date: 10/17/24 11:35 Pre-Op Diagnosis: Infected hematoma Post-Op Diagnosis: Infected hematoma I identified the patient and participated in the time-out.: Yes Procedure Operation Date: 10/17/24 11:35 Actual Procedures p Incision and Drainage Right Thigh Hematoma - Brandon Laguna DO Surgeon Brandon Laguna DO Program Services Assistant OR staff Estimated Blood Loss 10 Findings Consistent with Post-Op Diagnosis Specimens abcess fluid for gram stain/culture Description of Procedure After informed consent was obtained patient was taken to the operating room and placed in supine position. After successful placement of laryngeal mask airway the patient was placed in a frog-leg position. Entire right lower leg was sterilely prepped and draped in usual fashion. I began by using a 15 blade scalpel to make a linear incision over the fluctuant abscess. We immediately encountered a large fluid pocket which was primarily serous fluid but there was some purulent debris as well. A sample was taken and sent for Gram stain culture and sensitivity. After completely evacuating the wound I then used cautery to remove all of the necrotic tissue. This was a relatively large area over the central portion of the cavity. This included skin and subcutaneous tissue down to the fascia of muscle. The defect in the skin measured approximately 15 cm x 9 cm. There was some slight undermining primarily distally. The wound was then thoroughly irrigated. Any small bleeding points were controlled using cautery. The wound was packed with 2 inch iodoform packing (2 pieces), followed by gauze Per wrap, followed by an John bandage. The patient was awakened extubated and transferred recovery in stable condition. I attest to the content of the Intraoperative Record and any orders documented therein. Any exceptions are noted below.
[2024-10-17] MEDS: BUPIVACAINE/EPINEPHRINE 0.5% MPF 1:200,000 30 ML VIAL ONE (17:38)
--- NOTE | 2024-10-17 18:18 | Anesthesiology Progress Note ---
Date of Service October 17, 2024 Anesthesia Post Procedure Vital Signs Vital Signs: Temp Pulse Pulse Pulse Resp BP BP 10/17/24 18:15 88 18 144/82 H 10/17/24 18:05 36.7 C 89 20 139/90 10/17/24 17:55 85 12 131/88 10/17/24 17:45 92 H 18 136/95 10/17/24 17:35 85 24 149/88 H 10/17/24 17:28 36.8 C 91 H 23 139/78 10/17/24 16:06 36.8 C 94 H 20 141/89 H 10/17/24 15:36 84 22 10/17/24 15:30 186/108 H 10/17/24 15:30 186/108 H 10/17/24 15:24 95 H 15 10/17/24 15:03 84 25 H 10/17/24 14:36 76 17 10/17/24 14:10 79 10/17/24 14:03 81 16 177/101 H 10/17/24 13:39 86 16 175/104 H 10/17/24 12:33 88 23 173/104 H 10/17/24 11:33 83 19 160/98 H 10/17/24 11:12 83 16 10/17/24 10:27 85 17 170/94 H 10/17/24 10:23 90 10/17/24 09:46 36.9 C 97 H 20 149/107 H Pulse Ox O2 Del Method O2 Flow Rate 10/17/24 18:15 100 Room Air 10/17/24 18:05 94 Room Air 10/17/24 17:55 97 Room Air 10/17/24 17:45 95 Oxymask 4 10/17/24 17:35 100 Oxymask 9 10/17/24 17:28 100 Oxymask 9 10/17/24 16:06 98 Room Air 10/17/24 15:36 98 10/17/24 15:30 10/17/24 15:30 10/17/24 15:24 99 10/17/24 15:03 98 10/17/24 14:36 98 10/17/24 14:10 10/17/24 14:03 96 10/17/24 13:39 96 10/17/24 12:33 98 10/17/24 11:33 98 Room Air 10/17/24 11:12 99 10/17/24 10:27 97 Room Air 10/17/24 10:23 10/17/24 09:46 99 Room Air Pain Intensity Right Thigh: Pain Intensity: 3 Transfer of Care Handoff Completed per policy Notes Mental Status: alert / awake / arousable and participated in evaluation Patient Amnestic to Procedure: Yes Nausea / Vomiting: adequately controlled Pain: adequately controlled Airway Patency, RR, SpO2: stable & adequate BP & HR: stable & adequate Hydration State: stable & adequate Anesthetic Complications: no major complications apparent
[2024-10-17] MEDS ORDERED: ALBUT/IPRATROP 3MG/0.5MG NEB 3 ML VIAL NEB PRN (18:29)
[2024-10-17] MEDS ORDERED: LORazepam 0.5 MG TAB PO PRN (18:29)
[2024-10-17] MEDS: SODIUM CHLORIDE 0.9% 1,000 ML IV SCH (18:44)
[2024-10-17] MEDS: GABAPENTIN 600 MG TAB PO SCH (18:44)
[2024-10-17] MEDS: ACETAMINOPHEN 500 MG TAB PO SCH (18:51)
[2024-10-17] MEDS: ENOXAPARIN INJ 40 MG/0.4 ML SYR SQ SCH (19:32)
[2024-10-17] MEDS: PIPERACILLIN/TAZOBACTAM 4.5 GM/100 ML BAG IV SCH (19:32)
[2024-10-17] MEDS: MoRPHine SULFATE 4 MG/ML 1 ML CARP\\VIAL IV PRN (20:33)
--- NOTE | 2024-10-18 04:57 | Surgery Progress Note ---
Date of Service October 18, 2024 Assessment & Plan (1) Infected hematoma: Plan: Patient is status post incision and drainage of right thigh abscess/hematoma on 10/17/2024 (postop day 1) Provide analgesics as needed Will begin dressing changes in the next 24 hours Continue antibiotics in form of daptomycin and Zosyn Tailor antibiotics based on operative cultures which are pending Lovenox is in place for DVT prevention Check a.m. labs when available Admission and Anticipated Discharge Date Admission Date: October 17, 2024 Subjective Patient is resting comfortably in bed. He notes his pain is well-controlled. He denies any fevers, shakes, or chills Physical Exam Physical Exam: Dressing to right lower extremity is clean, dry, and intact Results & Data Vital Signs (Past 12 Hours) Vital Signs Temp Pulse Pulse Resp BP Pulse Ox O2 Del Method 10/18/24 01:09 78 16 157/107 H 99 Room Air 10/17/24 21:28 81 16 119/76 97 Room Air 10/17/24 20:30 36.5 C 88 18 128/79 98 Room Air 10/17/24 20:29 36.5 C 88 18 128/79 98 Room Air 10/17/24 19:37 36.7 C 96 H 18 131/85 96 Room Air 10/17/24 19:00 36.5 C 104 H 16 127/84 97 Room Air 10/17/24 18:29 36.5 C 84 16 156/94 H 95 Room Air 10/17/24 18:15 88 18 144/82 H 100 Room Air 10/17/24 18:05 36.7 C 89 20 139/90 94 Room Air 10/17/24 17:55 85 12 131/88 97 Room Air 10/17/24 17:45 92 H 18 136/95 95 Oxymask 10/17/24 17:35 85 24 149/88 H 100 Oxymask 10/17/24 17:28 36.8 C 91 H 23 139/78 100 Oxymask O2 Flow Rate 10/18/24 01:09 10/17/24 21:28 10/17/24 20:30 10/17/24 20:29 10/17/24 19:37 10/17/24 19:00 10/17/24 18:29 10/17/24 18:15 10/17/24 18:05 10/17/24 17:55 10/17/24 17:45 4 10/17/24 17:35 9 10/17/24 17:28 9 PG Care Time/CCT Total # of Minutes Spent Total Time Spent with Patient: Total time spent is greater than 50% in coordination of care (as documented) at patient's floor/unit and/or counseling patient: Coding Level of Care Code None Diagnoses Infected hematoma T14.8XXA; L08.9
[2024-10-18 06:02] LABS: Hematocrit (blood only) 40.5 % (42.0-52.0); Hemoglobin 13.9 g/dl (14.0-18.0); Mean Corpuscular Hemoglobin 33.8 pg (25.0-34.0); Mean Corpuscular Volume 98.5 fL (80.0-100.0); Platelet Count 348 K/uL (130-400); RDW Standard Deviation 51.3 fL (36.4-46.3); Red Blood Count 4.11 M/uL (4.70-6.10); White Blood Count 10.95 K/ul (4.8-10.8)
[2024-10-18 06:17] LABS: Anion Gap 7.0 (3-11); Blood Urea Nitrogen 7.0 mg/dl (6-23); Calcium 8.2 mg/dl (8.6-10.3); Carbon Dioxide 29.0 mmol/L (21-32); Chloride 101.0 mmol/L (98-107); Creatinine Clr Calc Pharmacy 122.3 ml/min; Glucose 128.0 mg/dl (70-99(Fasting)); Potassium 3.9 mmol/L (3.5-5.1); Sodium 137.0 mmol/L (136-145)
[2024-10-18] MEDS: GABAPENTIN 600 MG TAB PO SCH (07:40)
[2024-10-18] MEDS: THIAMINE HCL 100 MG TAB PO SCH (08:14)
[2024-10-18] MEDS: MULTIVITAMIN TAB PO SCH (08:14)
[2024-10-18] MEDS: FOLIC ACID 1 MG TAB PO SCH (08:14)
[2024-10-18] MEDS: NICOTINE 21 MG/24 HR TDSY TD SCH (08:14)
[2024-10-18] MEDS: POLYETHYLENE (MIRALAX) 17 GM PACK PO SCH (08:15)
[2024-10-18] MEDS: REMOVE NICODERM PATCH SCH (08:15)
[2024-10-18] MEDS ORDERED: REMOVE NICODERM PATCH SCH (08:59)
--- NOTE | 2024-10-18 12:34 | Hospitalist Progress Note ---
Date of Service October 18, 2024 Assessment & Plan (1) Infected hematoma: Plan: Status post incision and drainage on 10/17/2024 (2) Cellulitis of right thigh: (3) Nicotine dependence with current use: (4) Engages in binge consumption of alcohol: Plan Patient with infected hematoma, status post I&D. Check MRSA screen if that is negative suspect can discontinue daptomycin Blood cultures negative today, wound culture may be pinpoint growth. Would not be surprised if we do not get anything growing definitively in cultures since he was treated with antibiotics when he first sustained the injury. Suspect could transition to Augmentin Dressing and wound care as directed by surgery Patient does not have any insurance, communication with case management due to the concern that he will need ongoing wound care. If family members may need to be taught how to take care of his wounds Low suspicion that patient will have significant alcohol withdrawal, will discontinue gabapentin protocol Continue nicotine supplementation Adjust pain management control Admission and Anticipated Discharge Date Admission Date: October 17, 2024 Subjective Patient feeling better. Tolerated surgical procedure. Would like to get home as soon as possible. Feels as though he is getting enough nicotine replacement. Denies any type of alcohol withdrawal symptoms. He states that mostly he drinks beer on the weekends but does not drink through the week and does not have any issues with any withdrawal symptoms during the week. Patient reports that the pain medicines do help but still in a fair amount of pain Physical Exam Physical Exam: Constitutional: Alert, nontoxic HEENT: Mucous membranes moist. Lungs: Clear to auscultation, decreased, no wheezes rales or rhonchi CV: S1-S2, regular Abdomen: Soft, nontender, nondistended Extremities: Large surgical dressing on right thigh Neuro: No focal deficits Psych: Cooperative, normal mood Results & Data Results & Data Vital Signs (Past 12 Hours) Vital Signs Temp Pulse Resp BP Pulse Ox O2 Del Method 10/18/24 07:48 36.5 C 101 H 18 137/85 96 Room Air 10/18/24 05:13 89 16 152/99 H 97 Room Air 10/18/24 01:09 78 16 157/107 H 99 Room Air Diagnostic Findings Reviewed imaging, laboratory and diagnostic studies. Pertinent findings as below. WBCs 10.9 Hemoglobin 13.9, stable Electrolytes stable Wound culture no definitive organisms, pinpoint growth and reincubating Blood cultures no growth to date
[2024-10-18] MEDS: ACETAMINOPHEN 500 MG TAB PO SCH (14:00)
--- NOTE | 2024-10-19 03:50 | Surgery Progress Note ---
Date of Service October 19, 2024 Assessment & Plan (1) Infected hematoma: Plan: Patient is status post incision and drainage of right thigh abscess/hematoma on 10/17/2024 (postop day #2) Continue analgesics as needed Operative cultures have pinpoint growth and are reincubating Continue antibiotics in form of daptomycin and Zosyn, tailor antibiotics based on culture results Nursing staff to continue daily dressing changes; wound care nurse has been consulted with recommendations to follow-up Check a.m. labs unavailable Lovenox is in place for DVT prevention as above. pt feeling well. having considerable concerns regarding his hospital stay and on going needs in light of not having insurance. discussed with charge nurse who is going to discuss with case management. my recommendation would be for a wound vac at home if possible. this is a large wound that is going to take quite some time to heal. Admission and Anticipated Discharge Date Admission Date: October 17, 2024 Subjective Patient is resting comfortably in bed. He says he has no issues with pain control. He denies any fevers, shakes, or chills Nursing staff is changed dressing on 10/18/2024 Physical Exam Physical Exam: Dressing to right thigh is clean, dry, intact Results & Data Vital Signs (Past 12 Hours) Vital Signs Temp Pulse Resp BP Pulse Ox O2 Del Method 10/18/24 20:16 37.2 C 92 H 16 133/87 98 Room Air 10/18/24 16:23 37.0 C 104 H 18 116/77 95 Room Air PG Care Time/CCT Total # of Minutes Spent Total Time Spent with Patient: Total time spent is greater than 50% in coordination of care (as documented) at patient's floor/unit and/or counseling patient: Coding Level of Care Code None Diagnoses Infected hematoma T14.8XXA; L08.9
[2024-10-19 06:34] LABS: Hematocrit (blood only) 38.2 % (42.0-52.0); Hemoglobin 13.2 g/dl (14.0-18.0); Mean Corpuscular Hemoglobin 33.6 pg (25.0-34.0); Mean Corpuscular Volume 97.2 fL (80.0-100.0); Platelet Count 323 K/uL (130-400); RDW Standard Deviation 50.3 fL (36.4-46.3); Red Blood Count 3.93 M/uL (4.70-6.10); White Blood Count 11.10 K/ul (4.8-10.8)
[2024-10-19] MEDS ORDERED: GABAPENTIN 600 MG TAB PO SCH (12:00)
--- NOTE | 2024-10-19 15:04 | Hospitalist Progress Note ---
Date of Service October 19, 2024 Assessment & Plan (1) Infected hematoma: Plan: Infected hematoma with cellulitis of right thigh Status post incision and drainage on 10/17/2024 Wound culture is growing pinpoint growth and sent for incubation Has been on intravenous daptomycin and Zosyn as of today- likely to be discharged on oral Augmentin Awaiting wound care nurse evaluation and recommendation and likely to have wound VAC placed channel manager is on board to meeting requirements on discharge (2) Cellulitis of right thigh: Plan: as above (3) Nicotine dependence with current use: (4) Engages in binge consumption of alcohol: Plan Patient with infected hematoma, status post I&D. Check MRSA screen if that is negative suspect can discontinue daptomycin Blood cultures negative today, wound culture may be pinpoint growth. Would not be surprised if we do not get anything growing definitively in cultures since he was treated with antibiotics when he first sustained the injury. Suspect could transition to Augmentin Dressing and wound care as directed by surgery Patient does not have any insurance, communication with case management due to the concern that he will need ongoing wound care. If family members may need to be taught how to take care of his wounds Low suspicion that patient will have significant alcohol withdrawal, will d iscontinue gabapentin protocol Continue nicotine supplementation Adjust pain management control Admission and Anticipated Discharge Date Admission Date: October 17, 2024 Subjective 10/19/2024 The patient was seen and examined in medical floor He is status post incision and drainage of right thigh abscess/hematoma on 10/17/2024 He has minimal pain in that area but he still needs considerable care including wound VAC placement and treat for infection Denies any fever and/or chills, any nausea or vomiting He wants to be discharged and even threatened to sign out AMA Has been agreeable to stay till being evaluated by wound care nurse and also evaluate for wound culture to come back Review of Systems Review of Systems: All systems reviewed and are unremarkable except as noted below Physical Exam Physical Exam: Lying in bed without any acute distress Constitutional: well developed, well nourished, + ill appearing and + obese Eyes: PERRL, conjunctivae normal, anicteric sclerae ENMT: external ear and nose normal, oropharynx normal Neck: trachea midline, no thyromegaly Respiratory: no respiratory distress Auscultation: lungs clear to auscultation bilaterally Cardiovascular: Rate/Rhythm: regular rate and regular rhythm; not tachycardic Heart Sounds: normal S1 and normal S2; no murmur Extremities: + edema ( Trace edema but more on the right than the left side) Gastrointestinal (Abdomen): Inspection/Auscultation: normal bowel sounds; abdomen not distended Percussion/Palpation: abdomen soft; abdomen nontender Musculoskeletal: Right thigh is bandaged but does not have any acute arthritis involving any of the joint Neurologic: normal touch/pain/proprioception and moves all extremities; no focal motor deficits Lymphatic: no cervical or axillary lymphadenopathy Results & Data Results & Data Vital Signs (Past 12 Hours) Vital Signs Temp Pulse Resp BP Pulse Ox O2 Del Method 10/19/24 07:00 36.6 C 81 16 137/82 97 Room Air Laboratory Results Short CBC 10/19/24 Range/Units 06:05 WBC 11.10 H (4.8-10.8) K/ul Hgb 13.2 L (14.0-18.0) g/dl Hct 38.2 L (42.0-52.0) % Plt Count 323 (130-400) K/uL Medications Administered Current Inpatient Medications Acetaminophen (Acetaminophen 500 Mg Tab) 1,000 mg PO TID [facility]IL Stop: 11/17/24 13:59 Last Admin: 10/19/24 13:36 Dose: 1,000 mg Albuterol (Albut/Ipratrop 3mg/0.5mg Neb 3 Ml Vial) 3 ml NEB Q6R PRN; Protocol PRN Reason: Shortness Of Breath Or Wheezing Stop: 11/16/24 18:28 Enoxaparin Sodium (Enoxaparin Inj 40 Mg/0.4 Ml Syr) 40 mg SQ Q12H [facility]IL Stop: 11/16/24 18:28 Last Admin: 10/19/24 05:44 Dose: 40 mg Folic Acid (Folic Acid 1 Mg Tab) 1 mg PO QAM [facility]IL Stop: 11/17/24 08:59 Last Admin: 10/19/24 07:29 Dose: 1 mg Daptomycin 700 mg/ Syringe 14 mls @ 7 mls/min IV Q24H [facility]IL; Protocol Stop: 10/24/24 12:44 Last Admin: 10/18/24 12:58 Dose: 7 mls/min Piperacillin Sod/Tazobactam Sod (Zosyn) 4.5 gm in 100 mls @ 25 mls/hr IV Q8H [facility]; Protocol Stop: 10/24/24 18:28 Last Infusion: 10/19/24 13:34 Dose: Infused Lisinopril (Lisinopril 20 Mg Tab) 20 mg PO [facility] Stop: 11/17/24 08:59 Last Admin: 10/19/24 07:28 Dose: 20 mg Lorazepam (Lorazepam 1 Mg Tab) 1 mg PO UD PRN; Protocol PRN Reason: EtOH Withdrawal AWSS Score 6,7 Stop: 11/16/24 11:35 Lorazepam (Lorazepam 1 Mg Tab) 3 mg PO ONCE PRN; Protocol PRN Reason: EtOH Withdrawal AWSS Score 10 & above Lorazepam (Lorazepam 1 Mg Tab) 2 mg PO UD PRN; Protocol PRN Reason: EtOH Withdrawal AWSS Score 8,9 Stop: 11/16/24 11:35 Lorazepam (Lorazepam 0.5 Mg Tab) 0.5 mg PO Q4H PRN PRN Reason: Anxiety Stop: 11/16/24 18:28 Lorazepam (Lorazepam 1 Mg Tab) 1 mg PO Q6H PRN PRN Reason: Anxiety Stop: 11/18/24 14:46 Miscellaneous (Remove Nicoderm Patch) 1 each N/A DAILY@0859 [facility] Stop: 11/17/24 08:58 Last Admin: 10/19/24 07:29 Dose: 1 each Multivitamins (Multivitamin Tab) 1 tab PO [facility] Stop: 11/17/24 08:59 Last Admin: 10/19/24 07:28 Dose: 1 tab Nicotine (Nicotine 21 Mg/24 Hr Tdsy) 1 patch TD [facility] Stop: 11/17/24 08:59 Last Admin: 10/19/24 07:27 Dose: 1 patch Oxycodone HCl (Oxycodone Hcl Ir 5 Mg Tab (Immediate Release)) 10 mg PO Q4H PRN PRN Reason: Mod-Sev Pain (Scale 4-10) Stop: 10/31/24 18:28 Last Admin: 10/19/24 13:35 Dose: 10 mg Polyethylene Glycol (Polyethylene (Miralax) 17 Gm Pack) 17 gm PO DAILY [facility] Stop: 11/17/24 08:59 Last Admin: 10/19/24 07:38 Dose: Not Given Thiamine HCl (Thiamine Hcl 100 Mg Tab) 100 mg PO [facility] Stop: 11/17/24 08:59 Last Admin: 10/19/24 07:28 Dose: 100 mg
[2024-10-19] MEDS: LORazepam 1 MG TAB PO PRN ×2 (15:16→21:37)
--- NOTE | 2024-10-19 22:20 | Electrocardiogram Report ---
Test Reason : Blood Pressure : */* mmHG Vent. Rate : 87 BPM Atrial Rate : 87 BPM P-R Int : 140 ms QRS Dur : 94 ms QT Int : 354 ms P-R-T Axes : 73 65 67 degrees QTcB Int : 425 ms Normal sinus rhythm Normal ECG When compared with ECG of 15-Oct-2024 07:37, No significant change was found Confirmed by Rakesh Mcfarlane ([id number]) on 10/19/2024 10:20:09 PM Referred By: REFERRED SELF Confirmed By: Rakesh Mcfarlane
[2024-10-20] MEDS ORDERED: AMOXICILLIN/CLAVULANATE 875 MG TAB PO SCH (08:00)
--- NOTE | 2024-10-20 11:15 | Discharge Summary ---
Discharge Summary Date of Service October 20, 2024 Principal Dx & Hospital Course #1 = Principal Diagnosis (1) Infected hematoma: (2) Cellulitis of right thigh: (3) Nicotine dependence with current use: (4) Engages in binge consumption of alcohol: Plan Patient 49-year-old gentleman initially presented to the emergency room with increasing pain and redness of his right medial thigh after he suffered a significant traumatic event earlier this month. Was determined to be an infected hematoma. Patient was evaluated by surgery. Underwent I&D of that hematoma. He was placed on broad-spectrum antibiotics. Patient continue with wound care throughout the weekend. Surgery is recommending possibly wound VAC. Waiting final culture results. Unfortunately, patient was unwilling to wait to be evaluated by wound care today. He left AGAINST MEDICAL ADVICE walked out of the hospital before he could be seen or have any type of instructions given to him. I was able to contact him by phone. Told him that antibiotics were called into his pharmacy. Also told him that he needs to get daily dressing changes or coordinate wound care either through his PCP or through his surgeon. This can be done outpatient but needs to be done relatively urgent. Patient is aware also where there is a wound clinic at [place] that he may be able to get to logistically much easier. Notes For Next Care Provider Needs ongoing management of his wound Medication Changes From Visit Augmentin Admission HPI Per Admitting Provider Patient is a 49 year old M with a past medical history of COPD, current tobacco user, HTN (uncontrolled) ,morbid obesity, hypertriglyceridemia, chronic DDD, panic disorder, anxiety presenting with right leg hematoma and infection. Two weeks ago, on 09/24, he fell off a tractor and run over with the brush hook injuring his right thigh, right scrotum, and upper back. He was seen in the ED on 09/26, sent home with Bactrim and reportedly competed the entire course of antibiotic. He returned here 2 days ago for unresolved symptoms and persistent infection, was agreeable to surgery that same day and then left AMA d/t overwhelming anxiety and possible nicotine withdrawal. He feels infection has not completely cleared, has not worsened. Left scrotal injury improving per patient report and not bothersome at this time. Denies fever, chills, weight loss, weakness, headache, cognitive changes, vision/hearing changes, chest pain, SOB, difficulty breathing, urinary concerns, N/V/D, joint swelling/pain, ambulation difficulty, skin rashes, bleeding, bruising. In the emergency department, patient was afebrile with stable white count, but had an elevated Lactate 2.1. Procal norm. Hypokalemia with K+ 3.3 and supplemented with 40 meq KCL x 1. Alk phos elevated 115. CT femur imaging from 10/15 showing large well defined homogeneously hypoattenuating lesion/collection (HU around 6-7) involving medial aspect of mid and distal right thigh region in the subcutaneous plane. Few hypodense area possibility of hemorrhagic component likely. Follow up CT femur done today showing large subcutaneous fluid collection of the medial right thigh since CT of October 15, 2024. As before, the skin and small hyperdense foci suggestive of retracting clot. This favors a subacute hematoma. Mild adjacent stranding is also unchanged. General surgery consulted in the ED with the plan for debridement today. Patient is agreeable to surgery. Cefepime and Zosyn given in the ED. NSS 500 ml in ED. Morphine for pain x 1 with relief. Patient is nonadherent to home medications for hypertension, COPD, and hypertriglyceridemia d/t lack of insurance. He has been off all controller medications for at least 2 months. Hypertensive in ED 160's /90's. No acute resp distress and stable on room air. Current tobacco user 2 PPD. History obtained primarily from the patient and via hospitalization record. The patient's family was at the bedside and assisted with history of current illness. External chart review obtained from [facility] for home meds. Admission Exam Per Admitting Provider See H&P Discharge Exam Patient left AGAINST MEDICAL ADVICE prior to being examined Updated Medication List Medication Instructions Recorded Confirmed Type acetaminophen 500 mg tablet 500 mg PO Q6H PRN Pain 10/15/24 10/17/24 History ibuprofen 200 mg tablet 200 mg PO Q6H PRN Pain 10/15/24 10/17/24 History albuterol 90 mcg/actuation aerosol 108 mcg inhalation PRN wheeze 10/17/24 History inhaler hydrochlorothiazide 25 mg tablet 25 mg PO DAILY 10/17/24 10/17/24 History lisinopril 20 mg tablet 20 mg PO DAILY 10/17/24 10/17/24 History amoxicillin 875 mg-potassium 1 tab PO BIDM 10 days #20 tabs 10/20/24 Rx clavulanate 125 mg tablet Hospital Stay Data Consultations 10/17/24 10:43 ED Decision to Admit Stat 10/17/24 10:44 Consult General Surgery Routine Procedures Performed Operation Date: 10/17/24 11:35 Actual Procedures p Incision and Drainage and Debridement Right Thigh Wound(Right) - Brandon Laguna DO Diagnostic Imagining Performed 10/17/24 11:52 CT leg [CT femur RT wo con] Urgent Pending Results Patient Have Any Pending Studies at Discharge: No Total Time Total Time Spent Total Time Spent (In Minutes): 25
[2024-10-21] MEDS ORDERED: GABAPENTIN 600 MG TAB PO SCH
== END 2024-10-20 10:23 | disposition left against medical advice (07) | DRG 580 ==
LOC: ED 09:44 → EDINP 11:52 → SUATTDRO 11:52 → EDINP 16:17 → 3W 18:29

== ENCOUNTER 2024-10-21 23:32 | Inpatient (IN) ==
[2024-10-22] MEDS: PIPERACILLIN/TAZOBACTAM 4.5 GM/100 ML BAG IV ONE (00:07)
[2024-10-22] MEDS: NICOTINE 21 MG/24 HR TDSY TD STA (00:07)
[2024-10-22] MEDS: SODIUM CHLORIDE 0.9% 1,000 ML IV SCH ×2 (00:08→05:26)
[2024-10-22 00:12] LABS: Hematocrit (blood only) 40.8 % (42.0-52.0); Hemoglobin 14.2 g/dl (14.0-18.0); Immature Granulocytes # (auto) 0.08 K/uL (0.01-0.20); Immature Granulocytes % (auto) 0.7 %; Mean Corpuscular Hemoglobin 34.0 pg (25.0-34.0); Mean Corpuscular Volume 97.6 fL (80.0-100.0); Platelet Count 376 K/uL (130-400); RDW Standard Deviation 50.1 fL (36.4-46.3); Red Blood Count 4.18 M/uL (4.70-6.10); White Blood Count 11.36 K/ul (4.8-10.8)
[2024-10-22 00:21] LABS: Alanine Aminotransferase 22.0 U/L (7-52); Alkaline Phosphatase 93.0 U/L (34-104); Anion Gap 11.0 (3-11); Bilirubin,Total 0.3 mg/dl (0.2-1.0); Blood Urea Nitrogen 9.0 mg/dl (6-23); Calcium 9.0 mg/dl (8.6-10.3); Carbon Dioxide 23.0 mmol/L (21-32); Chloride 102.0 mmol/L (98-107); Creatinine Clr Calc Pharmacy 108.4 ml/min; Glucose 112.0 mg/dl (70-99(Fasting)); Magnesium 2.1 mg/dl (1.7-2.4); Potassium 3.6 mmol/L (3.5-5.1); Sodium 136.0 mmol/L (136-145); Total Protein 7.7 gm/dl (6.0-8.3)
--- NOTE | 2024-10-22 01:32 | XRay Report ---
EXAM: XR chest 1V portable CLINICAL HISTORY: Sepsis TECHNIQUE: An X-ray image of the chest is obtained in AP projection. COMPARISON: 10/15/2024 FINDINGS: Pulmonary Parenchyma: No evidence of consolidation, collapse, or focal opacities. No evidence of pleural effusion or pleural thickening. Heart and Mediastinum: Heart size is mildly enlarged. No mediastinal widening or masses. Bony Thorax: Lower cervical fusion is noted. Mild degenerative changes of the visualized skeleton. Soft Tissues: Soft tissues overlying the chest wall are unremarkable. IMPRESSION: 1. No acute cardiopulmonary abnormalities are identified. 2. Mild cardiomegaly. 3. No significant interval change. Electronically signed by Gage Cool 10-22-2024 01:32 AM
--- NOTE | 2024-10-22 03:22 | History & Physical Report ---
Date of Service October 22, 2024 Assessment & Plan (1) Unspecified open wound, right thigh, initial encounter: Plan: 49-year-old male with past med history significant for COPD, hypertension, obesity, tobacco use disorder, ongoing alcoholism, noncompliance presents with right thigh wound and chest pains. Patient was initially in the hospital on 10/15/2024 with a right thigh hematoma from the fall of tractor reported 3 weeks ago. Because hematoma was large and extensive skin necrosis and likely infection surgery planned for I&D but patient signed out AMA. Patient was admitted on 10/17/2024 and underwent an I&D of the hematoma. He was placed on broad-spectrum antibiotics. Surgery recommended for possible wound VAC. But patient again signed out AMA on 10/20/2024. He was called and prescribed Augmentin. But patient not started taking medication yet. In the evening before coming to the ER today he started having left-sided chest pain, sharp pains on and off. Currently the pain is improved. And is also worried about the infection in the right thigh. Denies any fevers. Having pain at the surgical site. Denies shortness of breath. Has smoker's cough. Denies headache. No dizziness. No runny nose or sore throat. No abdominal pain. Normal bowel and bladder movements. Says he smokes 2 packs of cigarettes daily. Says drinks alcohol 2to 3 times a week and when he drinks he drinks about 12 beers a day. Does not think that he will go through withdrawal. Patient states he takes blood pressure medication only when it is needed. Not taking his cholesterol medication. Currently hemodynamics are okay.Says his scrotal injury from fall is healed . Unspecified open wound right thigh initial encounter Status post evacuation of hematoma recently Seems infected Last admission there was a plan for wound VAC but patient signed out AMA Empiric IV Vanco and Zosyn, IV fluids, n.p.o. Surgery consult in a.m. Chest pains Troponin negative. EKG some T wave inversion inferior leads Currently pain improved Will follow repeat EKG. Serial cardiac enzymes. Echo Telemetry Cardiac consult in a.m. Ongoing alcoholism Counseling Alcohol withdrawal protocol with gabapentin and IV Ativan as needed Thiamine, folic acid and multivitamins Will closely monitor for withdrawal Tobacco abuse Counseling Nicotine patch Hypertension Says he takes blood pressure medication only as needed Seems on lisinopril at home We will monitor Hyperlipidemia Not taking medications COPD Currently seems stable Nebs as needed DVT prophylaxis SCDs on left leg for now Disposition Telemetry Full code. History of Present Illness Chief Complaint: Chest pain, right thigh wound Primary Care Provider: Barbara Lei MD 49-year-old male with past med history significant for COPD, hypertension, obesity, tobacco use disorder, ongoing alcoholism, noncompliance presents with right thigh wound and chest pains. Patient was initially in the hospital on 10/15/2024 with a right thigh hematoma from the fall of tractor reported 3 weeks ago. Because hematoma was large and extensive skin necrosis and likely infection surgery planned for I&D but patient signed out AMA. Patient was admitted on 10/17/2024 and underwent an I&D of the hematoma. He was placed on broad-spectrum antibiotics. Surgery recommended for possible wound VAC. But patient again signed out AMA on 10/20/2024. He was called and prescribed Augmentin. But patient not started taking medication yet. In the evening befor e coming to the ER today he started having left-sided chest pain, sharp pains on and off. Currently the pain is improved. And is also worried about the infection in the right thigh. Denies any fevers. Having pain at the surgical site. Denies shortness of breath. Has smoker's cough. Denies headache. No dizziness. No runny nose or sore throat. No abdominal pain. Normal bowel and bladder movements. Says he smokes 2 packs of cigarettes daily. Says drinks alcohol 2to 3 times a week and when he drinks he drinks about 12 beers a day. Does not think that he will go through withdrawal. Patient states he takes blood pressure medication only when it is needed. Not taking his cholesterol medication. Currently hemodynamics are okay.Says his scrotal injury from fall is healed . Past medical history. As mentioned above. Past surgical history. Biopsy of spine tumor. LS disc fusion. Neck spine fusion. Social history. Currently smoking 2 packs cigarettes daily. Drinks 2-3 times a week and drinks 12 beers when he drinks. No drug use. Family history. Father alcoholism. Liver disease. Allergies Allergy/AdvReac Type Severity Reaction Status Date / Time Penicillins Allergy Intermediate RASH Verified 10/22/24 01:00 Home Medications Medication Instructions Recorded Confirmed Type amoxicillin 875 mg-potassium 1 tab PO BIDM 10 days #20 tabs 10/20/24 10/22/24 Rx clavulanate 125 mg tablet Past Med/Surg History Problem List (Updated 10/22/24 @ 06:32 by Pepito Rodriguez PA-C) Atypical chest pain (Acute) Unspecified open wound, right thigh, initial encounter Engages in binge consumption of alcohol (Acute) Infected hematoma (Acute) Cellulitis of right thigh (Acute) Nicotine dependence with current use Alcohol abuse COPD (chronic obstructive pulmonary disease) Avulsion of skin (Acute) Hematoma of right thigh (Acute) Infected hematoma (Acute) Cervical stenosis of spinal canal (Acute 07/01/13) Medical History High blood pressure Surgical History H/O Spinal surgery Social History Smoking Status: Current every day smoker Tobacco Type: Cigarettes Cigarettes Per Day: 20; Second Hand Exposure: No; Do You Dip or Chew Tobacco: No; Tobacco Cessation Education Requested by Patient: No Hx Alcohol Use: Yes Alcohol type: beer Hx Substance Use: No Preferred Language: Monegasque Communication Ability: Effective Performance Test Consultant Required: No Beliefs That Will Affect Care: None Current Living Situation: Alone Other Information That Helps Us Care for You: No Feels Safe at Home: Yes Safety Concerns: Feels Safe At This Time Assistive Devices: Contacts Review of Systems Review of Systems: All systems reviewed & are unremarkable except as noted in HPI & below Physical Exam Physical Exam: General- Not in distress. Head- atraumatic Eyes- PERRL ENT- oropharynx clear Neck- supple, no JVD. Lungs- clear to auscultation no wheezing or crackles Heart- regular rhythm; no murmur, no gallop. Abdomen- normal bowel sounds, soft, nontender, no distension Extremities- no pretibial edema, Deep open wounds in right thigh Neuro- alert, oriented PERRL, no facial palsy; no dysarthria; moves extremities Results & Data Results & Data Vital Signs (Past 12 Hours) Vital Signs Temp Pulse Pulse Resp BP BP Pulse Ox 10/22/24 00:46 72 18 150/96 H 97 10/22/24 00:30 78 24 124/98 98 10/22/24 00:03 80 18 145/96 H 98 10/21/24 23:42 78 10/21/24 23:19 36.8 C 84 18 145/99 H 96 O2 Del Method 10/22/24 00:46 10/22/24 00:30 Room Air 10/22/24 00:03 Room Air 10/21/24 23:42 10/21/24 23:19 Room Air Diagnostic Findings Laboratory Results WBC 11.36 K/ul (4.8-10.8) H 10/21/24 23:37 RBC 4.18 M/uL (4.70-6.10) L 10/21/24 23:37 Hgb 14.2 g/dl (14.0-18.0) 10/21/24 23:37 Hct 40.8 % (42.0-52.0) L 10/21/24 23:37 MCV 97.6 fL (80.0-100.0) 10/21/24 23:37 MCH 34.0 pg (25.0-34.0) 10/21/24 23:37 MCHC 34.8 g/dL (32.0-36.0) 10/21/24 23:37 RDW Std Deviation 50.1 fL (36.4-46.3) H 10/21/24 23:37 RDW Coeff of Pako 14.1 % (11.5-14.5) 10/21/24 23:37 Plt Count 376 K/uL (130-400) 10/21/24 23:37 MPV 8.9 fL (9.4-12.4) L 10/21/24 23:37 Immature Gran % (Auto) 0.7 % 10/21/24 23:37 Neut % (Auto) 58.6 % 10/21/24 23:37 Lymph % (Auto) 30.3 % 10/21/24 23:37 Sebastian % (Auto) 7.7 % 10/21/24 23:37 Eos % (Auto) 2.1 % 10/21/24 23:37 Baso % (Auto) 0.6 % 10/21/24 23:37 Neut # (Auto) 6.65 K/uL (1.40-6.50) H 10/21/24 23:37 Lymph # (Auto) 3.44 K/uL (1.20-3.40) H 10/21/24 23:37 Sebastian # (Auto) 0.88 K/uL (0.11-0.59) H 10/21/24 23:37 Eos # (Auto) 0.24 K/uL (0.00-0.50) 10/21/24 23:37 Baso # (Auto) 0.07 K/uL (0.00-0.20) 10/21/24 23:37 Immature Gran # (Auto) 0.08 K/uL (0.01-0.20) 10/21/24 23:37 Sodium 136 mmol/L (136-145) 10/21/24 23:37 Potassium 3.6 mmol/L (3.5-5.1) 10/21/24 23:37 Chloride 102 mmol/L (98-107) 10/21/24 23:37 Carbon Dioxide 23 mmol/L (21-32) 10/21/24 23:37 Anion Gap 11 (3-11) 10/21/24 23:37 BUN 9 mg/dl (6-23) 10/21/24 23:37 Creatinine 1.20 mg/dl (0.6-1.4) 10/21/24 23:37 Est Cr Clr Drug Dosing 108.4 ml/min 10/21/24 23:37 eGFR 73.22 10/21/24 23:37 BUN/Creatinine Ratio 7.5 (10-20) L 10/21/24 23:37 Glucose 112 mg/dl (70-99(Fasting)) H 10/21/24 23:37 Lactate 1.4 mmol/L (0.4-2.0) 10/21/24 23:57 Calcium 9.0 mg/dl (8.6-10.3) 10/21/24 23:37 Magnesium 2.1 mg/dl (1.7-2.4) 10/21/24 23:37 Total Bilirubin 0.3 mg/dl (0.2-1.0) 10/21/24 23:37 Direct Bilirubin 0.1 mg/dl (0-0.2) 10/21/24 23:37 AST 30 U/L (13-39) 10/21/24 23:37 ALT 22 U/L (7-52) 10/21/24 23:37 Alkaline Phosphatase 93 U/L (34-104) 10/21/24 23:37 Troponin I High Sens 5.7 pg/ml (0-20) 10/21/24 23:37 Total Protein 7.7 gm/dl (6.0-8.3) 10/21/24 23:37 Albumin 3.6 gm/dl (3.4-5.0) 10/21/24 23:37 Procalcitonin 0.06 ng/ml (0-0.5) 10/21/24 23:37 Ethyl Alcohol mg/dL 104.5 mg/dl (<10.0) H 10/22/24 00:19 Impressions Chest X-Ray 10/21/24 23:48 EXAM: XR chest 1V portable CLINICAL HISTORY: Sepsis TECHNIQUE: An X-ray image of the chest is obtained in AP projection. COMPARISON: 10/15/2024 FINDINGS: Pulmonary Parenchyma: No evidence of consolidation, collapse, or focal opacities. No evidence of pleural effusion or pleural thickening. Heart and Mediastinum: Heart size is mildly enlarged. No mediastinal widening or masses. Bony Thorax: Lower cervical fusion is noted. Mild degenerative changes of the visualized skeleton. Soft Tissues: Soft tissues overlying the chest wall are unremarkable. IMPRESSION: 1. No acute cardiopulmonary abnormalities are identified. 2. Mild cardiomegaly. 3. No significant interval change. Electronically signed by Gage Cool 10-22-2024 01:32 AM ECG Additional Comments: ECG.Normal sinus rhythm rate of 82. T wave inversions in inferior leads. QTc 429 Code Status & VTE Plan VTE Prophylaxis Plan VTE Prophylaxis will be ordered: Yes
[2024-10-22] MEDS ORDERED: NITROGLYCERIN SL 0.4 MG/TAB TAB SL PRN (04:05)
[2024-10-22] MEDS ORDERED: Ativan IV Alcohol Withdrawal--Active Protocol IV PRN (04:05)
[2024-10-22] MEDS ORDERED: GABAPENTIN 1200MG ALCOHOL WITHDRAWAL LOAD PO STA (04:05)
[2024-10-22] MEDS ORDERED: POLYETHYLENE (MIRALAX) 17 GM PACK PO PRN (04:05)
[2024-10-22] MEDS ORDERED: VANCOMYCIN CONSULT ACTIVE PRN (04:05)
[2024-10-22] MEDS: THIAMINE HCL 100 MG in SYRINGE 9 ML IV STA (04:08)
[2024-10-22] MEDS: FOLIC ACID 1 MG in SYRINGE 9.8 ML IV STA (04:08)
[2024-10-22 04:50] LABS: Hematocrit (blood only) 37.4 % (42.0-52.0); Hemoglobin 12.7 g/dl (14.0-18.0); Immature Granulocytes # (auto) 0.08 K/uL (0.01-0.20); Immature Granulocytes % (auto) 0.8 %; Mean Corpuscular Hemoglobin 32.8 pg (25.0-34.0); Mean Corpuscular Volume 96.6 fL (80.0-100.0); Platelet Count 314 K/uL (130-400); RDW Standard Deviation 50.6 fL (36.4-46.3); Red Blood Count 3.87 M/uL (4.70-6.10); White Blood Count 9.84 K/ul (4.8-10.8)
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
[2024-10-22] MEDS: GABAPENTIN 600 MG TAB PO ONE (05:25)
[2024-10-22] MEDS: VANCOMYCIN HCL 2,750 MG in SODIUM CHLORIDE 0.9% 500 ML IV STA (05:26)
[2024-10-22 05:29] LABS: Anion Gap 8 (3-11); Blood Urea Nitrogen 9 mg/dl (6-23); Calcium 8.3 mg/dl (8.6-10.3); Carbon Dioxide 24 mmol/L (21-32); Chloride 106 mmol/L (98-107); Creatinine Clr Calc Pharmacy 138.4 ml/min; Glucose 133 mg/dl (70-99(Fasting)); Magnesium 2.0 mg/dl (1.7-2.4); Sodium 138 mmol/L (136-145)
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
[2024-10-22 08:26] LABS: Folate (Folic Acid),Ser orPlas 15.2 ng/ml (>5.38)
[2024-10-22 08:27] LABS: Vitamin B12 226.0 pg/ml (180-914)
--- NOTE | 2024-10-22 08:31 | Surgery Consultation ---
Date of Consultation October 22, 2024 Assessment & Plan (1) Unspecified open wound, right thigh, initial encounter: (2) Cellulitis of right thigh: Wound base looks clean without infection or necrosis. No further surgical debridement is required. Continue IV antibiotics for cellulitis. wound care nurse consulted. pain management as needed. Continue medical management. Dr. Howell has seen and examined patient, agrees with above. History of Present Illness Reason for Consultation: right thigh wound Requesting Physician: Justyn Barron MD Attending Physician: Justyn Barron MD History of Present Illness 49 yo male with recent i&D of infected hematoma of Right tigh on 10/17/[address] Laguna who left hospital AM presented back to ED with concern for his wound and possible infection. No fevers, no increase in pain or redness. Was recommended for wound vac but left hospital ama prior to wound nurse evaluation. He states packing has been present in wound since 10/17. No significant pain just soreness. Allergies Allergy/AdvReac Type Severity Reaction Status Date / Time Penicillins Allergy Intermediate RASH Verified 10/22/24 01:00 Home Medications Medication Instructions Recorded Confirmed Type amoxicillin 875 mg-potassium 1 tab PO BIDM 10 days #20 tabs 10/20/24 10/22/24 Rx clavulanate 125 mg tablet Patient History Medical History High blood pressure Surgical History H/O Spinal surgery Social History Smoking Status: Current every day smoker Tobacco Type: Cigarettes Cigarettes Per Day: 20; Second Hand Exposure: No; Do You Dip or Chew Tobacco: No; Tobacco Cessation Education Requested by Patient: No Hx Alcohol Use: Yes Alcohol type: beer Hx Substance Use: No Preferred Language: Macedonian Communication Ability: Effective Load Out Supervisor Required: No Beliefs That Will Affect Care: None Current Living Situation: Alone Other Information That Helps Us Care for You: No Feels Safe at Home: Yes Safety Concerns: Feels Safe At This Time Assistive Devices: Contacts Review of Systems Review of Systems: All systems reviewed & are unremarkable except as noted in HPI & below Physical Exam Constitutional: WD/WN, vitals as above cooperative and comfortable; no acute distress Respiratory: normal respiratory effort; no respiratory distress Musculoskeletal: Right thigh: there is a large wound of the right thigh with packing present. mild surrounding erythema and edema. Wound base with healthy granulation tissue and no necrosis. Wound measuring about 15 cm x 9 cm. There is undermining 4 cm laterally, 5 cm superiorly, 3 cm medially and 6 cm inferiorly. Psychiatric: Orientation: alert and oriented x 3 Results & Data Vital Signs (Past 12 Hours) Vital Signs Temp Pulse Pulse Resp BP BP Pulse Ox 10/22/24 06:00 36.8 C 71 16 146/77 H 98 10/22/24 04:57 78 23 109/82 10/22/24 04:08 123/75 10/22/24 04:06 79 19 132/80 10/22/24 03:48 86 21 132/83 10/22/24 03:38 99 H 10/22/24 03:30 132/79 10/22/24 03:21 84 21 130/78 10/22/24 03:19 84 17 130/78 97 10/22/24 01:00 149/90 H 10/22/24 00:46 72 18 150/96 H 97 10/22/24 00:30 78 24 124/98 98 10/22/24 00:03 80 18 145/96 H 98 10/21/24 23:42 78 10/21/24 23:19 36.8 C 84 18 145/99 H 96 O2 Del Method 10/22/24 06:00 Room Air 10/22/24 04:57 10/22/24 04:08 10/22/24 04:06 10/22/24 03:48 10/22/24 03:38 10/22/24 03:30 10/22/24 03:21 10/22/24 03:19 Room Air 10/22/24 01:00 10/22/24 00:46 10/22/24 00:30 Room Air 10/22/24 00:03 Room Air 10/21/24 23:42 10/21/24 23:19 Room Air Laboratory Results 10/22/24 10/22/24 10/22/24 Range/Units 10:36 07:12 04:29 WBC 9.84 (4.8-10.8) K/ul RBC 3.87 L (4.70-6.10) M/uL Hgb 12.7 L (14.0-18.0) g/dl Hct 37.4 L (42.0-52.0) % MCV 96.6 (80.0-100.0) fL MCH 32.8 (25.0-34.0) pg MCHC 34.0 (32.0-36.0) g/dL RDW Std Deviation 50.6 H (36.4-46.3) fL RDW Coeff of Pako 14.4 (11.5-14.5) % Plt Count 314 (130-400) K/uL MPV 9.0 L (9.4-12.4) fL Immature Gran % (Auto) 0.8 % Neut % (Auto) 59.1 % Lymph % (Auto) 28.5 % Rincon % (Auto) 8.2 % Eos % (Auto) 2.7 % Baso % (Auto) 0.7 % Neut # (Auto) 5.81 (1.40-6.50) K/uL Lymph # (Auto) 2.80 (1.20-3.40) K/uL Rincon # (Auto) 0.81 H (0.11-0.59) K/uL Eos # (Auto) 0.27 (0.00-0.50) K/uL Baso # (Auto) 0.07 (0.00-0.20) K/uL Immature Gran # (Auto) 0.08 (0.01-0.20) K/uL Sodium 138 (136-145) mmol/L Potassium 3.8 TNP (3.5-5.1) mmol/L Chloride 106 (98-107) mmol/L Carbon Dioxide 24 (21-32) mmol/L Anion Gap 8 (3-11) BUN 9 (6-23) mg/dl Creatinine 0.94 (0.6-1.4) mg/dl Est Cr Clr Drug Dosing 138.4 ml/min eGFR 98.15 BUN/Creatinine Ratio 9.6 L (10-20) Glucose 133 H (70-99(Fasting)) mg/dl Lactate (0.4-2.0) mmol/L Calcium 8.3 L (8.6-10.3) mg/dl Magnesium 2.0 (1.7-2.4) mg/dl Total Bilirubin (0.2-1.0) mg/dl Direct Bilirubin (0-0.2) mg/dl AST (13-39) U/L ALT (7-52) U/L Alkaline Phosphatase (34-104) U/L Troponin I High Sens 4.3 5.3 (0-20) pg/ml Total Protein (6.0-8.3) gm/dl Albumin (3.4-5.0) gm/dl Vitamin B12 226 Cancelled Folate 15.20 Cancelled Procalcitonin (0-0.5) ng/ml Ethyl Alcohol mg/dL (<10.0) mg/dl 10/22/24 10/21/24 10/21/24 Range/Units 00:19 23:57 23:37 WBC 11.36 H (4.8-10.8) K/ul RBC 4.18 L (4.70-6.10) M/uL Hgb 14.2 (14.0-18.0) g/dl Hct 40.8 L (42.0-52.0) % MCV 97.6 (80.0-100.0) fL MCH 34.0 (25.0-34.0) pg MCHC 34.8 (32.0-36.0) g/dL RDW Std Deviation 50.1 H (36.4-46.3) fL RDW Coeff of Pako 14.1 (11.5-14.5) % Plt Count 376 (130-400) K/uL MPV 8.9 L (9.4-12.4) fL Immature Gran % (Auto) 0.7 % Neut % (Auto) 58.6 % Lymph % (Auto) 30.3 % Rincon % (Auto) 7.7 % Eos % (Auto) 2.1 % Baso % (Auto) 0.6 % Neut # (Auto) 6.65 H (1.40-6.50) K/uL Lymph # (Auto) 3.44 H (1.20-3.40) K/uL Rincon # (Auto) 0.88 H (0.11-0.59) K/uL Eos # (Auto) 0.24 (0.00-0.50) K/uL Baso # (Auto) 0.07 (0.00-0.20) K/uL Immature Gran # (Auto) 0.08 (0.01-0.20) K/uL Sodium 136 (136-145) mmol/L Potassium 3.6 (3.5-5.1) mmol/L Chloride 102 (98-107) mmol/L Carbon Dioxide 23 (21-32) mmol/L Anion Gap 11 (3-11) BUN 9 (6-23) mg/dl Creatinine 1.20 (0.6-1.4) mg/dl Est Cr Clr Drug Dosing 108.4 ml/min eGFR 73.22 BUN/Creatinine Ratio 7.5 L (10-20) Glucose 112 H (70-99(Fasting)) mg/dl Lactate 1.4 (0.4-2.0) mmol/L Calcium 9.0 (8.6-10.3) mg/dl Magnesium 2.1 (1.7-2.4) mg/dl Total Bilirubin 0.3 (0.2-1.0) mg/dl Direct Bilirubin 0.1 (0-0.2) mg/dl AST 30 (13-39) U/L ALT 22 (7-52) U/L Alkaline Phosphatase 93 (34-104) U/L Troponin I High Sens 5.7 (0-20) pg/ml Total Protein 7.7 (6.0-8.3) gm/dl Albumin 3.6 (3.4-5.0) gm/dl Vitamin B12 Folate Procalcitonin 0.06 (0-0.5) ng/ml Ethyl Alcohol mg/dL 104.5 H (<10.0) mg/dl
--- NOTE | 2024-10-22 08:36 | Pharmacy Report ---
Pharmacy PK ABX Note - Date of Service October 22, 2024 - Assessment and Plan Assessment 49 year old M receiving vancomycin and Zosyn for treatment of infected right thigh wound. Patient originally presented to ED on 10/15 for evaluation of this wound that developed after a fall from a tractor (~2 weeks prior). Patient left AMA. Presented again on 10/17 and admitted for IV antibiotic treatment of infected hematoma as well as I&D. Patient again left AMA. Finally, patient presented to ED again on 10/21/24 due to chest pains and concern of existing leg infection. Of note, patient reports that he never picked up his outpatient antibiotics. Pertinent microbiologic data includes: blood cultures x 2 pending. Blood cultures from 10/15 and 10/17 have no growth. Day # 1 of antimicrobial therapy. Plan Vancomycin * Loading dose: 2750 mg IV x 1 * Maintenance dose: 1250 mg IV every 8 hours * Regimen is predicted to achieve target AUC/SUSIE of 400-600 mg/L.hr * Random level ordered for: 10/23/24 Pharmacy will continue to follow and will adjust dose/frequency as necessary. Thank you. Pharmacy has transitioned to AUC monitoring for vancomycin. AUC/SUSIE is the preferred PK/PD target and is associated with decreased risk of nephrotoxicity compared to traditional trough targets.
[2024-10-22] MEDS: MoRPHine SULFATE 2 MG/ML CARP IV STA (08:42)
[2024-10-22] MEDS: PIPERACILLIN/TAZOBACTAM 4.5 GM/100 ML BAG IV SCH (08:43)
[2024-10-22] MEDS: REMOVE NICODERM PATCH SCH ×2 (08:45→09:02)
[2024-10-22] MEDS: MULTIVITAMIN TAB PO SCH (08:46)
[2024-10-22] MEDS: FOLIC ACID 1 MG TAB PO SCH (08:46)
[2024-10-22] MEDS: THIAMINE HCL 100 MG TAB PO SCH (08:46)
[2024-10-22] MEDS: NICOTINE 14 MG/24 HR PATCH TD SCH (09:23)
[2024-10-22] MEDS: ROSUVASTATIN CALCIUM 10 MG TAB PO SCH (12:47)
[2024-10-22] MEDS: LOSARTAN POTASSIUM 50 MG TAB PO SCH (12:47)
[2024-10-22] MEDS: GABAPENTIN 600 MG TAB PO SCH (12:47)
[2024-10-22] MEDS: VANCOMYCIN HCL 1,250 MG in SODIUM CHLORIDE 0.9% 250 ML IV SCH (15:43)
[2024-10-23] MEDS: GABAPENTIN 600 MG TAB PO SCH (06:04)
[2024-10-23 07:18] LABS: Hematocrit (blood only) 37.1 % (42.0-52.0); Hemoglobin 12.6 g/dl (14.0-18.0); Mean Corpuscular Hemoglobin 33.4 pg (25.0-34.0); Mean Corpuscular Volume 98.4 fL (80.0-100.0); Platelet Count 310 K/uL (130-400); RDW Standard Deviation 50.5 fL (36.4-46.3); Red Blood Count 3.77 M/uL (4.70-6.10); White Blood Count 9.97 K/ul (4.8-10.8)
[2024-10-23 07:57] LABS: Anion Gap 8.0 (3-11); Calcium 8.4 mg/dl (8.6-10.3); Carbon Dioxide 23.0 mmol/L (21-32); Chloride 107.0 mmol/L (98-107); Magnesium 2.0 mg/dl (1.7-2.4); Potassium 3.7 mmol/L (3.5-5.1); Sodium 138.0 mmol/L (136-145)
[2024-10-23 08:02] LABS: Blood Urea Nitrogen 9.0 mg/dl (6-23); Creatinine Clr Calc Pharmacy 146.2 ml/min; Glucose 101.0 mg/dl (70-99(Fasting))
[2024-10-23] MEDS: NICOTINE POLACRILEX 2 MG GUM MT SCH (10:32)
[2024-10-23] MEDS ORDERED: NICOTINE POLACRILEX 2 MG GUM MT PRN (11:23)
[2024-10-23] MEDS: MoRPHine SULFATE 2 MG/ML CARP IV PRN (11:39)
[2024-10-23] MEDS: NICOTINE 21 MG/24 HR TDSY TD SCH (12:25)
[2024-10-23] MEDS: MoRPHine SULFATE 4 MG/ML 1 ML CARP\\VIAL IV STA (12:26)
--- NOTE | 2024-10-23 14:14 | Pharmacy Report ---
Pharmacy PK ABX Note - Date of Service October 23, 2024 - Assessment and Plan Assessment 10/23 * Random vancomycin level this AM ~15 mcg/ml - current vancomycin regimen predicted to achieve goal AUC/SUSIE therefore will continue current dosing. Blood cultures no growth thus far. No surgical debridement required per notes. 10/22: * 49 year old M receiving vancomycin and Zosyn for treatment of infected right thigh wound. * Patient originally presented to ED on 10/15 for evaluation of this wound that developed after a fall from a tractor (~2 weeks prior). Patient left AMA. Presented again on 10/17 and admitted for IV antibiotic treatment of infected hematoma as well as I&D. Patient again left AMA. Finally, patient presented to ED again on 10/21/24 due to chest pains and concern of existing leg infection. Of note, patient reports that he never picked up his outpatient antibiotics. Pertinent microbiologic data includes: blood cultures x 2 pending. Blood cultures from 10/15 and 10/17 have no growth. Day # 1 of antimicrobial therapy. Plan Vancomycin * Maintenance dose: Continue 1250 mg IV every 8 hours Pharmacy will continue to follow and will adjust dose/frequency as necessary. Thank you. Pharmacy has transitioned to AUC monitoring for vancomycin. AUC/SUSIE is the preferred PK/PD target and is associated with decreased risk of nephrotoxicity compared to traditional trough targets.
[2024-10-23] MEDS: VANCOMYCIN LEVEL ONE (14:32)
[2024-10-23] MEDS: ACETAMINOPHEN 325 MG TAB PO PRN (16:00)
--- NOTE | 2024-10-23 18:02 | Hospitalist Progress Note ---
Date of Service October 23, 2024 Assessment & Plan (1) Unspecified open wound, right thigh, initial encounter: Plan: 49-year-old male with past med history significant for COPD, hypertension, obesity, tobacco use disorder, ongoing alcoholism, noncompliance presents with right thigh wound and chest pains. Patient was initially in the hospital on 10/15/2024 with a right thigh hematoma from the fall of tractor reported 3 weeks ago. Because hematoma was large and extensive skin necrosis and likely infection surgery planned for I&D but patient signed out AMA. Patient was admitted on 10/17/2024 and underwent an I&D of the hematoma. He was placed on broad-spectrum antibiotics. Surgery recommended for possible wound VAC. But patient again signed out AMA on 10/20/2024. He was called and prescribed Augmentin. But patient not started taking medication yet. In the evening before coming to the ER today he started having left-sided chest pain, sharp pains on and off. Currently the pain is improved. And is also worried about the infection in the right thigh. Denies any fevers. Having pain at the surgical site. Denies shortness of breath. Has smoker's cough. Denies headache. No dizziness. No runny nose or sore throat. No abdominal pain. Normal bowel and bladder movements. Says he smokes 2 packs of cigarettes daily. Says drinks alcohol 2to 3 times a week and when he drinks he drinks about 12 beers a day. Does not think that he will go through withdrawal. Patient states he takes blood pressure medication only when it is needed. Not taking his cholesterol medication. Currently hemodynamics are okay.Says his scrotal injury from fall is healed . Unspecified open wound right thigh initial encounter Status post evacuation of hematoma recently Last admission there was a plan for wound VAC but patient signed out AMA Empiric IV Vanco and Zosyn, IV fluids, started on admission Surgery consulted - Wound base looks clean without infection or necrosis. No further surgical debridement is required. Continue IV antibiotics for cellulitis. wound care nurse consulted. pain management as needed. Continue medical management. Wound care consulted and discussed with - not clear if pt will be able to use/ afford wound vac - CM consulted. Dressings changed by wound care Chest pain Troponin negative. EKG some T wave inversion inferior leads Currently pain resolved Serial cardiac enzymes. Echo obtained Telemetry Cardiology consulted - * ECHO - LVEF 55-60%, no Regional WMA. No pericardial effusion. RV - normal size and function; IVC normal * Patient had no exertional chest pain or dyspnea on a recent long walkMed Hx: * HTN * Hyperlipidemia - LDL 93 (11/2023) * Smoker: 2-3 ppd Plans: * We will arrange for a Coronary CTA +/_ FFR as an outpt to evaluate Coronary Anatomy * Smoking cessation * HTN noted * Start Losartan 50 mg po per day * Start ASA 81 mg po per day if agreed to by surgery * Recent LDL -93 * Start Crestor 10 mg po per day * Will follow up with [facility] - arranging * Weight loss Ongoing alcoholism Counseling Alcohol withdrawal protocol with gabapentin and IV Ativan as needed Thiamine, folic acid and multivitamins Will closely monitor for withdrawal Tobacco abuse Counseling Nicotine patch Hypertension Says he takes blood pressure medication only as needed Seems on lisinopril at home - now on losartan , as above - monitor BP Hyperlipidemia Not taking medications at home - started on crestor, s above COPD Currently seems stable Nebs as needed DVT prophylaxis SCDs on left leg for now Disposition Telemetry Full code. Admission and Anticipated Discharge Date Admission Date: October 22, 2024 Subjective Pt seen in follow up of a large open wound of Right thigh Pt seen together with wound care nurse - as of right now pt does not seem to be able to get wound vac (not covered). CM consulted. Dressings changed by wound care. Pt denies any fever, chills, chest pain or shortness of breath. no abd.pain, n/v Review of Systems Review of Systems: All systems reviewed & are unremarkable except as noted in Subjective Physical Exam Physical Exam: General- WD/WN obese adult m in NAD Head- atraumatic Eyes- PERRL Neck- supple, no JVD. Lungs- clear to auscultation no wheezing or crackles Heart- regular rhythm; no murmur Abdomen- normal bowel sounds, soft, nontender, no distension Extremities- no pretibial edema, Deep open wound in right thigh Neuro- alert, oriented PERRL, no facial palsy; no dysarthria; moves extremities Results & Data Results & Data Vital Signs (Past 12 Hours) Vital Signs Temp Pulse Pulse Resp BP Pulse Ox O2 Del Method 10/23/24 15:52 36.5 C 69 18 142/86 H 100 Room Air 10/23/24 15:18 75 10/23/24 11:28 36.4 C L 75 18 145/88 H 97 Room Air 10/23/24 07:55 36.3 C L 63 18 148/93 H 97 Room Air 10/23/24 07:18 70 Laboratory Results 10/23/24 10/23/24 Range/Units 12:03 06:44 WBC 9.97 (4.8-10.8) K/ul RBC 3.77 L (4.70-6.10) M/uL Hgb 12.6 L (14.0-18.0) g/dl Hct 37.1 L (42.0-52.0) % MCV 98.4 (80.0-100.0) fL MCH 33.4 (25.0-34.0) pg MCHC 34.0 (32.0-36.0) g/dL RDW Std Deviation 50.5 H (36.4-46.3) fL RDW Coeff of Pako 13.9 (11.5-14.5) % Plt Count 310 (130-400) K/uL MPV 9.1 L (9.4-12.4) fL Sodium 138 (136-145) mmol/L Potassium 3.7 (3.5-5.1) mmol/L Chloride 107 (98-107) mmol/L Carbon Dioxide 23 (21-32) mmol/L Anion Gap 8 (3-11) BUN 9 (6-23) mg/dl Creatinine 0.90 (0.6-1.4) mg/dl Est Cr Clr Drug Dosing 146.2 ml/min eGFR 103.40 BUN/Creatinine Ratio 10.0 (10-20) Glucose 101 H (70-99(Fasting)) mg/dl Calcium 8.4 L (8.6-10.3) mg/dl Phosphorus 3.2 (2.5-4.9) mg/dl Magnesium 2.0 (1.7-2.4) mg/dl Random Vancomycin 15.2 (10-20) mcg/ml Medications Administered Current Inpatient Medications Acetaminophen (Acetaminophen 325 Mg Tab) 650 mg PO Q4H PRN PRN Reason: Pain or Fever Stop: 11/21/24 04:04 Last Admin: 10/23/24 16:00 Dose: 650 mg Folic Acid (Folic Acid 1 Mg Tab) 1 mg PO QAM [facility] Stop: 11/21/24 08:59 Last Admin: 10/23/24 09:17 Dose: 1 mg Gabapentin (Gabapentin 600 Mg Tab) 600 mg PO Q8H [facility] Stop: 10/23/24 22:01 Last Admin: 10/23/24 09:17 Dose: 600 mg Gabapentin (Gabapentin 600 Mg Tab) 600 mg PO Q12H [facility] Stop: 10/24/24 22:01 Gabapentin (Gabapentin 600 Mg Tab) 600 mg PO Q24H [facility] Stop: 10/25/24 22:01 Piperacillin Sod/Tazobactam Sod (Zosyn) 4.5 gm in 100 mls @ 25 mls/hr IV Q8H [facility]; Protocol Stop: 10/29/24 05:59 Last Infusion: 10/23/24 16:34 Dose: 0 mls/hr Sodium Chloride (Nss) 1,000 mls @ 125 mls/hr IV .Q8H [facility] Stop: 10/25/24 04:04 Last Infusion: 10/23/24 17:25 Dose: 125 mls/hr Vancomycin HCl 1,250 mg/ (Sodium Chloride) 275 mls @ 200 mls/hr IV Q8H [facility] Stop: 10/29/24 13:59 Last Infusion: 10/23/24 15:59 Dose: Infused Lorazepam (Lorazepam 2 Mg/1 Ml Vial) 1 mg IV UD PRN; Protocol PRN Reason: EtOH Withdrawal AWSS Score 6,7 Stop: 11/21/24 04:04 Lorazepam (Lorazepam 2 Mg/1 Ml Vial) 2 mg IV UD PRN; Protocol PRN Reason: EtOH Withdrawal AWSS Score 8,9 Stop: 11/21/24 04:04 Lorazepam (Lorazepam 2 Mg/1 Ml Vial) 3 mg IV ONCE PRN; Protocol PRN Reason: EtOH Withdrawal AWSS Score 10+ Losartan Potassium (Losartan Potassium 50 Mg Tab) [facility]: 11/21/24 11:44 Last Admin: 10/23/24 09:17 Dose: 50 mg Miscellaneous (Remove Nicoderm Patch) 1 each N/A DAILY@0859 [facility] Stop: 11/21/24 08:58 Last Admin: 10/23/24 07:42 Dose: 1 each Miscellaneous (Remove Nicoderm Patch) 1 each N/A DAILY@0859 [facility] Stop: 11/23/24 08:58 Miscellaneous Information (Vancomycin Consult Active) 1 each N/A UD PRN PRN Reason: Consult Stop: 11/21/24 04:04 Morphine Sulfate (Morphine Sulfate 2 Mg/Ml Carp) 2 mg IV Q3H PRN PRN Reason: Pain Stop: 11/05/24 09:05 Last Admin: 10/23/24 11:39 Dose: 2 mg Morphine Sulfate (Morphine Sulfate 4 Mg/Ml 1 Ml Carp\Vial) 4 mg IV Q3H PRN PRN Reason: Severe Pain (Scale 7, 8, 9,10) Stop: 11/05/24 09:05 Multivitamins (Multivitamin Tab) 1 tab PO [facility] Stop: 11/21/24 08:59 Last Admin: 10/23/24 09:17 Dose: 1 tab Nicotine (Nicotine 21 Mg/24 Hr Tdsy) 1 patch TD [facility] Stop: 11/22/24 11:29 Last Admin: 10/23/24 12:25 Dose: 1 patch Nicotine Polacrilex (Nicotine Polacrilex 2 Mg Gum) 1 piece MT Q2H PRN PRN Reason: urge to smoke Stop: 11/22/24 09:59 Nitroglycerin (Nitroglycerin Sl 0.4 Mg/Tab Tab) 0.4 mg SL Q5M PRN PRN Reason: Chest Pain Stop: 11/21/24 04:04 Oxycodone/Acetaminophen (Oxycodone/Acetaminophen 5mg/325mg Tab) 1 tab PO Q4H PRN PRN Reason: Moderate Pain (Scale 4, 5, 6) Stop: 11/05/24 09:04 Last Admin: 10/22/24 13:05 Dose: 1 tab Oxycodone/Acetaminophen (Oxycodone/Acetaminophen 5mg/325mg Tab) 2 tab PO Q4H PRN PRN Reason: Pain Stop: 11/05/24 09:04 Last Admin: 10/23/24 06:07 Dose: 2 tab Polyethylene Glycol (Polyethylene (Miralax) 17 Gm Pack) 17 gm PO DAILY PRN PRN Reason: Constipation Stop: 11/21/24 04:04 Rosuvastatin Calcium (Rosuvastatin Calcium 10 Mg Tab) 10 mg PO [facility] Stop: 11/21/24 11:44 Last Admin: 10/23/24 09:18 Dose: 10 mg Thiamine HCl (Thiamine Hcl 100 Mg Tab) [facility]: 11/21/24 08:59 Last Admin: 10/23/24 09:17 Dose: 100 mg
--- NOTE | 2024-10-24 04:53 | Electrocardiogram Report ---
Test Reason : Blood Pressure : */* mmHG Vent. Rate : 82 BPM Atrial Rate : 82 BPM P-R Int : 114 ms QRS Dur : 98 ms QT Int : 368 ms P-R-T Axes : -25 -7 -21 degrees QTcB Int : 429 ms Normal sinus rhythm Normal ECG When compared with ECG of 17-Oct-2024 10:15, Questionable change in QRS axis T wave inversion now evident in Inferior leads Confirmed by Rakesh Mcfarlane ([id number] on 10/24/2024 4:53:00 AM Referred By: REFERRED SELF Confirmed By: Rakesh Mcfarlane
--- NOTE | 2024-10-24 04:54 | Electrocardiogram Report ---
Test Reason : Blood Pressure : */* mmHG Vent. Rate : 62 BPM Atrial Rate : 62 BPM P-R Int : 140 ms QRS Dur : 106 ms QT Int : 434 ms P-R-T Axes : 65 61 54 degrees QTcB Int : 440 ms Normal sinus rhythm Normal ECG When compared with ECG of 21-Oct-2024 23:40, Questionable change in QRS axis T wave inversion no longer evident in Inferior leads Confirmed by Rakesh Mcfarlane ([id number] on 10/24/2024 4:54:00 AM Referred By: REFERRED SELF Confirmed By: Rakesh Mcfarlane
[2024-10-24 05:20] LABS: Hematocrit (blood only) 36.0 % (42.0-52.0); Hemoglobin 12.3 g/dl (14.0-18.0); Mean Corpuscular Hemoglobin 33.9 pg (25.0-34.0); Mean Corpuscular Volume 99.2 fL (80.0-100.0); Platelet Count 294 K/uL (130-400); RDW Standard Deviation 51.4 fL (36.4-46.3); Red Blood Count 3.63 M/uL (4.70-6.10); White Blood Count 8.54 K/ul (4.8-10.8)
[2024-10-24 05:43] LABS: Anion Gap 7.0 (3-11); Blood Urea Nitrogen 9.0 mg/dl (6-23); Calcium 8.7 mg/dl (8.6-10.3); Carbon Dioxide 25.0 mmol/L (21-32); Chloride 109.0 mmol/L (98-107); Creatinine Clr Calc Pharmacy 120.7 ml/min; Glucose 99.0 mg/dl (70-99(Fasting)); Magnesium 2.0 mg/dl (1.7-2.4); Potassium 3.9 mmol/L (3.5-5.1); Sodium 141.0 mmol/L (136-145)
[2024-10-24] MEDS: REMOVE NICODERM PATCH SCH (08:32)
[2024-10-24] MEDS: GABAPENTIN 600 MG TAB PO SCH (09:59)
[2024-10-24] MEDS: MoRPHine SULFATE 4 MG/ML 1 ML CARP\\VIAL IV PRN (17:05)
--- NOTE | 2024-10-24 18:20 | Hospitalist Progress Note ---
Date of Service October 24, 2024 Assessment & Plan (1) Unspecified open wound, right thigh, initial encounter: Plan: 49-year-old male with past med history significant for COPD, hypertension, obesity, tobacco use disorder, ongoing alcoholism, noncompliance presents with right thigh wound and chest pains. Patient was initially in the hospital on 10/15/2024 with a right thigh hematoma from the fall of tractor reported 3 weeks ago. Because hematoma was large and extensive skin necrosis and likely infection surgery planned for I&D but patient signed out AMA. Patient was admitted on 10/17/2024 and underwent an I&D of the hematoma. He was placed on broad-spectrum antibiotics. Surgery recommended for possible wound VAC. But patient again signed out AMA on 10/20/2024. He was called and prescribed Augmentin. But patient not started taking medication yet. In the evening before coming to the ER today he started having left-sided chest pain, sharp pains on and off. Currently the pain is improved. And is also worried about the infection in the right thigh. Denies any fevers. Having pain at the surgical site. Denies shortness of breath. Has smoker's cough. Denies headache. No dizziness. No runny nose or sore throat. No abdominal pain. Normal bowel and bladder movements. Says he smokes 2 packs of cigarettes daily. Says drinks alcohol 2to 3 times a week and when he drinks he drinks about 12 beers a day. Does not think that he will go through withdrawal. Patient states he takes blood pressure medication only when it is needed. Not taking his cholesterol medication. Currently hemodynamics are okay.Says his scrotal injury from fall is healed . Unspecified open wound right thigh initial encounter Status post evacuation of hematoma recently Last admission there was a plan for wound VAC but patient signed out AMA Empiric IV Vanco and Zosyn, IV fluids, started on admission Blood cultx - negat. in 48 hrs Surgery consulted - Wound base looks clean without infection or necrosis. No further surgical debridement is required. Continue IV antibiotics for cellulitis. wound care nurse consulted. pain management as needed. Continue medical management. Wound care consulted and discussed with - not clear if pt will be able to use/ afford wound vac - CM consulted. Dressings changed by wound care on 10/23. Cont. daily dressings changes. Chest pain Troponin negative. EKG some T wave inversion inferior leads Currently pain resolved Serial cardiac enzymes. Echo obtained Telemetry Cardiology consulted - * ECHO - LVEF 55-60%, no Regional WMA. No pericardial effusion. RV - normal size and function; IVC normal * Patient had no exertional chest pain or dyspnea on a recent long walkMed Hx: * HTN * Hyperlipidemia - LDL 93 (11/2023) * Smoker: 2-3 ppd Plans: * We will arrange for a Coronary CTA +/_ FFR as an outpt to evaluate Coronary Anatomy * Smoking cessation * HTN noted * Start Losartan 50 mg po per day * Start ASA 81 mg po per day if agreed to by surgery * Recent LDL -93 * Start Crestor 10 mg po per day * Will follow up with [facility] Cardiology at [facility] - arranging * Weight loss Ongoing alcoholism Counseling Alcohol withdrawal protocol with gabapentin and IV Ativan as needed Thiamine, folic acid and multivitamins Will closely monitor for withdrawal Tobacco abuse Counseling Nicotine patch Hypertension Says he takes blood pressure medication only as needed Seems on lisinopril at home - now on losartan , as above - monitor BP Hyperlipidemia Not taking medications at home - started on crestor, s above COPD Currently seems stable Nebs as needed DVT prophylaxis SCDs on left leg for now Disposition Telemetry Full code. Admission and Anticipated Discharge Date Admission Date: October 22, 2024 Subjective Pt seen in follow up of a large open wound of Right thigh Discussed w/ wound care nurse yesterday - as of right now pt does not seem to be able to get wound vac (not covered). CM consulted. Dressings changed by wound care yesterday, cont. daily dressing changes. Pt denies any fever, chills, chest pain or shortness of breath. no abd.pain, n/v Review of Systems Review of Systems: All systems reviewed & are unremarkable except as noted in Subjective Physical Exam Physical Exam: General- WD/WN obese adult m in NAD Head- atraumatic Eyes- PERRL Neck- supple, no JVD. Lungs- clear to auscultation no wheezing or crackles Heart- regular rhythm; no murmur Abdomen- normal bowel sounds, soft, nontender, no distension Extremities- no pretibial edema, Deep open wound in right thigh, packing and dressings applied Neuro- alert, oriented PERRL, no facial palsy; no dysarthria; moves extremities Results & Data Results & Data Vital Signs (Past 12 Hours) Vital Signs Temp Pulse Resp BP Pulse Ox O2 Del Method 10/24/24 15:35 36.4 C L 64 20 153/93 H 100 Room Air 10/24/24 13:00 Room Air 10/24/24 11:21 36.3 C L 65 19 152/84 H 100 Room Air 10/24/24 07:54 36.4 C L 67 20 146/93 H 99 Room Air Laboratory Results 10/24/24 Range/Units 04:30 WBC 8.54 (4.8-10.8) K/ul RBC 3.63 L (4.70-6.10) M/uL Hgb 12.3 L (14.0-18.0) g/dl Hct 36.0 L (42.0-52.0) % MCV 99.2 (80.0-100.0) fL MCH 33.9 (25.0-34.0) pg MCHC 34.2 (32.0-36.0) g/dL RDW Std Deviation 51.4 H (36.4-46.3) fL RDW Coeff of Pako 14.0 (11.5-14.5) % Plt Count 294 (130-400) K/uL MPV 9.4 (9.4-12.4) fL Sodium 141 (136-145) mmol/L Potassium 3.9 (3.5-5.1) mmol/L Chloride 109 H (98-107) mmol/L Carbon Dioxide 25 (21-32) mmol/L Anion Gap 7 (3-11) BUN 9 (6-23) mg/dl Creatinine 1.09 (0.6-1.4) mg/dl Est Cr Clr Drug Dosing 120.7 ml/min eGFR 82.17 BUN/Creatinine Ratio 8.3 L (10-20) Glucose 99 (70-99(Fasting)) mg/dl Calcium 8.7 (8.6-10.3) mg/dl Phosphorus 4.7 D (2.5-4.9) mg/dl Magnesium 2.0 (1.7-2.4) mg/dl Medications Administered Current Inpatient Medications Acetaminophen (Acetaminophen 325 Mg Tab) 650 mg PO Q4H PRN PRN Reason: Pain or Fever Stop: 11/21/24 04:04 Last Admin: 10/23/24 16:00 Dose: 650 mg Folic Acid (Folic Acid 1 Mg Tab) 1 mg PO QAM [facility] Stop: 11/21/24 08:59 Last Admin: 10/24/24 08:34 Dose: 1 mg Gabapentin (Gabapentin 600 Mg Tab) 600 mg PO Q12H [facility] Stop: 10/24/24 22:01 Last Admin: 10/24/24 09:59 Dose: 600 mg Gabapentin (Gabapentin 600 Mg Tab) 600 mg PO Q24H [facility] Stop: 10/25/24 22:01 Piperacillin Sod/Tazobactam Sod (Zosyn) 4.5 gm in 100 mls @ 25 mls/hr IV Q8H [facility]; Protocol Stop: 10/29/24 05:59 Last Admin: 10/24/24 14:00 Dose: 25 mls/hr Vancomycin HCl 1,250 mg/ (Sodium Chloride) 275 mls @ 200 mls/hr IV Q8H [facility] Stop: 10/29/24 13:59 Last Infusion: 10/24/24 16:47 Dose: Infused Lorazepam (Lorazepam 2 Mg/1 Ml Vial) 1 mg IV UD PRN; Protocol PRN Reason: EtOH Withdrawal AWSS Score 6,7 Stop: 11/21/24 04:04 Lorazepam (Lorazepam 2 Mg/1 Ml Vial) 2 mg IV UD PRN; Protocol PRN Reason: EtOH Withdrawal AWSS Score 8,9 Stop: 11/21/24 04:04 Lorazepam (Lorazepam 2 Mg/1 Ml Vial) 3 mg IV ONCE PRN; Protocol PRN Reason: EtOH Withdrawal AWSS Score 10+ Losartan Potassium (Losartan Potassium 50 Mg Tab) 50 mg PO QAM [facility] Stop: 11/21/24 11:44 Last Admin: 10/24/24 08:34 Dose: 50 mg Miscellaneous (Remove Nicoderm Patch) 1 each N/A DAILY@0859 [facility] Stop: 11/21/24 08:58 Last Admin: 10/24/24 08:31 Dose: 1 each Miscellaneous (Remove Nicoderm Patch) 1 each N/A DAILY@0859 [facility] Stop: 11/23/24 08:58 Last Admin: 10/24/24 08:32 Dose: Not Given Miscellaneous Information (Vancomycin Consult Active) 1 each N/A UD PRN PRN Reason: Consult Stop: 11/21/24 04:04 Morphine Sulfate (Morphine Sulfate 2 Mg/Ml Carp) 2 mg IV Q3H PRN PRN Reason: Pain Stop: 11/05/24 09:05 Last Admin: 10/23/24 11:39 Dose: 2 mg Morphine Sulfate (Morphine Sulfate 4 Mg/Ml 1 Ml Carp\Vial) 4 mg IV Q3H PRN PRN Reason: Severe Pain (Scale 7, 8, 9,10) Stop: 11/05/24 09:05 Last Admin: 10/24/24 17:05 Dose: 4 mg Multivitamins (Multivitamin Tab) 1 tab PO [facility] Stop: 11/21/24 08:59 Last Admin: 10/24/24 08:34 Dose: 1 tab Nicotine (Nicotine 21 Mg/24 Hr Tdsy) 1 patch TD [facility] Stop: 11/22/24 11:29 Last Admin: 10/24/24 08:33 Dose: 1 patch Nicotine Polacrilex (Nicotine Polacrilex 2 Mg Gum) 1 piece MT Q2H PRN PRN Reason: urge to smoke Stop: 11/22/24 09:59 Nitroglycerin (Nitroglycerin Sl 0.4 Mg/Tab Tab) 0.4 mg SL Q5M PRN PRN Reason: Chest Pain Stop: 11/21/24 04:04 Oxycodone/Acetaminophen (Oxycodone/Acetaminophen 5mg/325mg Tab) 1 tab PO Q4H PRN PRN Reason: Moderate Pain (Scale 4, 5, 6) Stop: 11/05/24 09:04 Last Admin: 10/22/24 13:05 Dose: 1 tab Oxycodone/Acetaminophen (Oxycodone/Acetaminophen 5mg/325mg Tab) 2 tab PO Q4H PRN PRN Reason: Pain Stop: 11/05/24 09:04 Last Admin: 10/23/24 21:29 Dose: 2 tab Polyethylene Glycol (Polyethylene (Miralax) 17 Gm Pack) 17 gm PO DAILY PRN PRN Reason: Constipation Stop: 11/21/24 04:04 Rosuvastatin Calcium (Rosuvastatin Calcium 10 Mg Tab) 10 mg PO [facility] Stop: 11/21/24 11:44 Last Admin: 10/24/24 08:34 Dose: 10 mg Thiamine HCl (Thiamine Hcl 100 Mg Tab) 100 mg PO [facility] Stop: 11/21/24 08:59 Last Admin: 10/24/24 08:35 Dose: 100 mg
--- NOTE | 2024-10-24 20:01 | Electrocardiogram Report ---
Test Reason : Blood Pressure : */* mmHG Vent. Rate : 68 BPM Atrial Rate : 68 BPM P-R Int : 124 ms QRS Dur : 110 ms QT Int : 414 ms P-R-T Axes : 66 59 43 degrees QTcB Int : 440 ms Normal sinus rhythm Normal ECG When compared with ECG of 23-Oct-2024 06:02, T wave amplitude has decreased in Lateral leads Confirmed by Rakesh Mcfarlane ([id number]) on 10/24/2024 8:00:40 PM Referred By: REFERRED SELF Confirmed By: Rakesh Mcfarlane
[2024-10-25 06:37] LABS: Hematocrit (blood only) 34.7 % (42.0-52.0); Hemoglobin 11.9 g/dl (14.0-18.0); Mean Corpuscular Hemoglobin 33.8 pg (25.0-34.0); Mean Corpuscular Volume 98.6 fL (80.0-100.0); Platelet Count 318 K/uL (130-400); RDW Standard Deviation 50.4 fL (36.4-46.3); Red Blood Count 3.52 M/uL (4.70-6.10); White Blood Count 8.15 K/ul (4.8-10.8)
[2024-10-25] MEDS ORDERED: Nursing to Pharmacy Communication SCH (07:30)
[2024-10-25 07:58] LABS: Anion Gap 8.0 (3-11); Blood Urea Nitrogen 10.0 mg/dl (6-23); Calcium 8.8 mg/dl (8.6-10.3); Carbon Dioxide 24.0 mmol/L (21-32); Chloride 105.0 mmol/L (98-107); Creatinine Clr Calc Pharmacy 116.5 ml/min; Glucose 129.0 mg/dl (70-99(Fasting)); Magnesium 1.9 mg/dl (1.7-2.4); Potassium 3.8 mmol/L (3.5-5.1); Sodium 137.0 mmol/L (136-145)
--- NOTE | 2024-10-25 11:57 | Communication Note ---
Date of Service: October 25, 2024 Notified by the RN that pt left AMA. I came to see the pt right away and found him by the elevators. Pt says he has to go home to take care of things that nobody else can take care of. He denies any complaints with medical care or staff. Discussed that he needs to change his dressings and keep the wound clean, offered supplies and pt interested in extra supplies to be able to do dressing changes. Bag of supplies provided to the pt. Pt left before could discuss any further care. MD Anderson
--- NOTE | 2024-10-25 11:58 | Discharge Summary ---
Date of Service October 25, 2024 Admission HPI Per Admitting Provider 49-year-old male with past med history significant for COPD, hypertension, obesity, tobacco use disorder, ongoing alcoholism, noncompliance presents with right thigh wound and chest pains. Patient was initially in the hospital on 10/15/2024 with a right thigh hematoma from the fall of tractor reported 3 weeks ago. Because hematoma was large and extensive skin necrosis and likely infection surgery planned for I&D but patient signed out AMA. Patient was admitted on 10/17/2024 and underwent an I&D of the hematoma. He was placed on broad-spectrum antibiotics. Surgery recommended for possible wound VAC. But patient again signed out AMA on 10/20/2024. He was called and prescribed Augmentin. But patient not started taking medication yet. In the evening before coming to the ER today he started having left-sided chest pain, sharp pains on and off. Currently the pain is improved. And is also worried about the infection in the right thigh. Denies any fevers. Having pain at the surgical site. Denies shortness of breath. Has smoker's cough. Denies headache. No dizziness. No runny nose or sore throat. No abdominal pain. Normal bowel and bladder movements. Says he smokes 2 packs of cigarettes daily. Says drinks alcohol 2to 3 times a week and when he drinks he drinks about 12 beers a day. Does not think that he will go through withdrawal. Patient states he takes blood pressure medication only when it is needed. Not taking his cholesterol medication. Currently hemodynamics are okay.Says his scrotal injury from fall is healed . Past medical history. As mentioned above. Past surgical history. Biopsy of spine tumor. LS disc fusion. Neck spine fusion. Social history. Currently smoking 2 packs cigarettes daily. Drinks 2-3 times a week and drinks 12 beers when he drinks. No drug use. Family history. Father alcoholism. Liver disease. Admission Exam Per Admitting Provider General- Not in distress. Head- atraumatic Eyes- PERRL ENT- oropharynx clear Neck- supple, no JVD. Lungs- clear to auscultation no wheezing or crackles Heart- regular rhythm; no murmur, no gallop. Abdomen- normal bowel sounds, soft, nontender, no distension Extremities- no pretibial edema, Deep open wounds in right thigh Neuro- alert, oriented PERRL, no facial palsy; no dysarthria; moves extremities Principal Diagnosis Unspecified open wound, right thigh Discharge Exam Pt not examined as pt left AMA, found by the elevators, pt dressed, feeling well, says he needs to go home and take care of things. Extra supplies provided for dressings changes, pt left before could discuss any further care Discharge Data Allergies Allergy/AdvReac Type Severity Reaction Status Date / Time Penicillins Allergy Intermediate RASH Verified 10/22/24 01:00 Consultations 10/22/24 00:56 ED Decision to Admit Stat 10/22/24 08:00 Consult General Surgery Routine Hospital Course (1) Unspecified open wound, right thigh, initial encounter: 49-year-old male with past med history significant for COPD, hypertension, obe sity, tobacco use disorder, ongoing alcoholism, noncompliance presents with right thigh wound and chest pains. Patient was initially in the hospital on 10/15/2024 with a right thigh hematoma from the fall of tractor reported 3 weeks ago. Because hematoma was large and extensive skin necrosis and likely infection surgery planned for I&D but patient signed out AMA. Patient was admitted on 10/17/2024 and underwent an I&D of the hematoma. He was placed on broad-spectrum antibiotics. Surgery recommended for possible wound VAC. But patient again signed out AMA on 10/20/2024. He was called and prescribed Augmentin. But patient not started taking medication yet. In the evening before coming to the ER today he started having left-sided chest pain, sharp pains on and off. Currently the pain is improved. And is also worried about the infection in the right thigh. Denies any fevers. Having pain at the surgical site. Denies shortness of breath. Has smoker's cough. Denies headache. No dizziness. No runny nose or sore throat. No abdominal pain. Normal bowel and bladder movements. Says he smokes 2 packs of cigarettes daily. Says drinks alcohol 2to 3 times a week and when he drinks he drinks about 12 beers a day. Does not think that he will go through withdrawal. Patient states he takes blood pressure medication only when it is needed. Not taking his cholesterol medication. Currently hemodynamics are okay.Says his scrotal injury from fall is healed . Unspecified open wound right thigh initial encounter Status post evacuation of hematoma recently Last admission there was a plan for wound VAC but patient signed out AMA Empiric IV Vanco and Zosyn, IV fluids, started on admission Blood cultx - negat. in 48 hrs Surgery consulted - Wound base looks clean without infection or necrosis. No further surgical debridement is required. Continue IV antibiotics for cellulitis. wound care nurse consulted. pain management as needed. Continue medical management. Wound care consulted and discussed with - not clear if pt will be able to use/ afford wound vac - CM consulted. Dressings / packing changed by wound care on 10/23. Another dressing change was yesterday on 10/24/2024 by RN. Cont. daily dressings changes. Notified by RN - Pt left AMA this AM (10/25/2024). Pt found in hallway by the elevators. Offered supplies for dressing changes which pt accepted. Was not able to discuss any further care as pt left. I sent rx to pt's pharmacy. Chest pain Troponin negative. EKG some T wave inversion inferior leads Currently pain resolved Serial cardiac enzymes. Echo obtained Telemetry Cardiology consulted - * ECHO - LVEF 55-60%, no Regional WMA. No pericardial effusion. RV - normal size and function; IVC normal * Patient had no exertional chest pain or dyspnea on a recent long walkMed Hx: * HTN * Hyperlipidemia - LDL 93 (11/2023) * Smoker: 2-3 ppd Plans: * We will arrange for a Coronary CTA +/_ FFR as an outpt to evaluate Coronary Anatomy * Smoking cessation * HTN noted * Start Losartan 50 mg po per day * Start ASA 81 mg po per day if agreed to by surgery * Recent LDL -93 * Start Crestor 10 mg po per day * [facility] - arranging * Weight loss Ongoing alcoholism Counseling Alcohol withdrawal protocol with gabapentin and IV Ativan as needed Thiamine, folic acid and multivitamins Will closely monitor for withdrawal Tobacco abuse Counseling Nicotine patch Hypertension Says he takes blood pressure medication only as needed Seems on lisinopril at home - now on losartan , as above - monitor BP Hyperlipidemia Not taking medications at home - started on crestor, s above COPD Currently seems stable Nebs as needed Total Time Total Time Spent Total Time Spent (In Minutes): 0 Discharge Plan Discharge Items Patient Disposition: Against Medical Advice Reason For Visit: RIGHT LEG WOUND, ALCOHOLISM, CHEST PAIN Condition on Discharge: Fair Follow-up/Referrals: Barbara Lei MD [Primary Care Provider] - Stand-Alone Forms: My [facility], Smoking Cessation Medications and DC Order Prescriptions: New losartan 50 mg Tablet 50 mg PO QAM Qty: 30 0RF rosuvastatin 10 mg Tablet 10 mg PO QAM Qty: 30 0RF oxycodone-acetaminophen [Percocet] 5-325 mg Tablet 1 tab PO Q4H PRN (Reason: pain) Qty: 14 0RF Continued amoxicillin-pot clavulanate 875-125 mg Tablet 1 tab PO BIDM 10 Days Qty: 20 0RF Rx Instructions: PER PT "HAS NOT STARTED YET" Discharge Orders: Left Against Medical Advice (Routine); Ordered 10/25/24 Ordered By: Justyn Barron Admission Data Admit Date/Time: 10/22/24 01:50 Attending Provider: Justyn Barron Admit Provider: Miguel Russell Primary Care Provider: Barbara Lei Other Providers: Kashmir Montes; Miguel Russell; Modesto Montgomery
[2024-10-25] MEDS ORDERED: GABAPENTIN 600 MG TAB PO SCH (22:00)
== END 2024-10-25 12:12 | disposition left against medical advice (07) | DRG 605 ==
LOC: ED 23:32 → SUATTDRO 10-22 01:50 → EDINP 10-22 01:50 → 2S 10-22 04:05 → 2N 10-25 03:38